=== PATIENT | male | born 1950 | race Caucasian/White ===

== ENCOUNTER 2018-06-18 09:13 | Outpatient (CLI) | payer MEDICARE ==
--- NOTE | 2018-06-18 11:33 | HP ---
DATE OF SERVICE: 06/18/2018. HISTORY OF PRESENT ILLNESS: Mr. Carlyle Flores is a very pleasant 68-year-old gentleman who [facility] of a lesion of the left buttock. The patient states that the lesio n might be aggravated by his prosthesis. He states that the lesion becomes better and worse, but nev er healed completely. The patient states that at times the lesion is open and erythematous. He stat es that his dresses the lesion with Neosporin followed by a Band-Aid. The patient states that seth hutchins was recently seen by Dr. Houston and prescribed courses of Augmentin and Bactrim, which he complete d taking as prescribed. He states that at this time, he was also referred to the [facility] for fu rther evaluation and treatment. PAST MEDICAL HISTORY: 1. Diabetes mellitus. 2. Hypertension. 3. Peripheral vascular disease. 4. Coronary artery disease. 5. Hypothyroidism. 6. History of atrial fibrillation. 7. Heart failure with preserved ejection fraction. PAST SURGICAL HISTORY: 1. Left above the knee amputation. 2. Colonic fistula repair. 3. Bilateral Warthin's tumor removal. MEDICATIONS: The patient does not have a list of his medications with him today. His medications; h owever, include levothyroxine, Lantus, Humalog, metformin, losartan, isosorbide, Plavix, Eliquis, Spi joseph and another inhaler. ALLERGIES: No known diagnosed allergies. SOCIAL HISTORY: Social history is significant for tobacco use of 2 packs of cigarettes per day since his teenage years. The patient states that he stopped smoking; however, around the year 1999. Soci al history is negative for ETOH use. FAMILY HISTORY: Family history is significant for coronary artery disease. The patient states that his mother was diagnosed with coronary artery disease. Family history is also significant for diabet es mellitus. The patient states that he has one sister and three brothers who were diagnosed with di abetes mellitus. PHYSICAL EXAMINATION: VITAL SIGNS: Temperature 97.5, pulse 61, respirations 23, blood pressure 166/72. Accu-Chek 171. GENERAL: A 68-year-old gentleman sitting on table in examination room, in no acute distress. HEENT: Normocephalic, atraumatic. NECK: No nuchal rigidity. CHEST: Clear to auscultation. CARDIOVASCULAR: Regular rate and rhythm. ABDOMEN: Soft. EXTREMITIES: A dorsalis pedis pulse is palpable on the right. A posterior tibial pulse is not palpa ble, but is audible by Doppler. No ulcerations are present over the right foot on today's exam. BACK: A lesion of the left buttock is present, which measures approximately 0.5 x 0.5 cm. The lesio n is erythematous and macular without any associated drainage. No erythema of the skin surrounding t he lesion is present. No maceration of the skin of the left buttock is present. NEUROLOGIC: Grossly nonfocal. ASSESSMENT AND PLAN: Left buttock lesion as described above. The patient has been reassured that no open wound is present. The patient states that his prosthesis has been adjusted by his securities dealer in order to provide for offloading of the left buttock in the region of the lesion. I have recommend ed dressing the lesion with Silvercel and bordered gauze to prevent any irritation of the skin by the prosthesis in the region of the lesion. The patient understands and is in agreement with the preced ing treatment plan. The patient states he will return to the [facility] if the lesion recurs despi te the preceding regimen. No open wound is present on today's exam and therefore no antibiotics will be prescribed today. The patient states that the lesion improved with the administration of Augment in and Bactrim DS. 2. Diabetes mellitus. The patient's Accu-Chek in clinic today is 171. 3. Hypertension. The patient has been told that with diabetes, his blood pressures should remain le ss than 140/90 or even more optimally less than 130/80. 4. Peripheral vascular disease. 5. Coronary artery disease. 6. Hypothyroidism. 7. History of atrial fibrillation. 8. Heart failure with preserved ejection fraction.
== END 2018-06-18 09:14 | disposition home or self-care (01) ==
LOC: WCC 09:13
PROVIDERS: ATTEND Family Medicine
DX: L98.9 Disorder of the skin and subcutaneous tissue, unspecified (principal); E11.51 Type 2 diabetes mellitus with diabetic peripheral angiopathy without gangrene; I25.10 Atherosclerotic heart disease of native coronary artery without angina pectoris; E03.9 Hypothyroidism, unspecified; I48.91 Unspecified atrial fibrillation; I11.0 Hypertensive heart disease with heart failure; I50.9 Heart failure, unspecified
CPT/HCPCS: 97139; 97602; G0463; 99203

== ENCOUNTER 2018-07-18 08:08 | Outpatient (CLI) | payer MEDICARE ==
[2018-07-18 08:48] LABS: Estimated GFR-MDRD - POC Greater than 90
--- NOTE | 2018-07-18 10:29 | CT ---
CT ANGIOGRAM ABDOMEN AND PELVIS WITH IV CONTRAST AND 3D RECONSTRUCTIONS CT ANGIOGRAM BILATERAL LOWER EXTREMITIES WITH RUOFF TO THE LEVEL OF THE RIGHT FOOT WITH IV CONTRAST A ND 3D RECONSTRUCTIONS: Date: 07-18-18 FINDINGS: There are minimal ground glass densities at each lung base which could be related to volume loss. No pleural effusion is present. There is a small hiatal hernia. A 1.7 cm right adrenal nodule is present which cannot be adequately characterized on this post enhanc ed CT scan exam. There is a 5.1 cm fluid attenuation density seen within the left kidney with question of a very tiny thin linear septation cyst involving a type two renal cystic lesion. The liver, spleen, pancreas, left adrenal gland, right kidney and incompletely distended urinary blad dilcia demonstrate a normal CT appearance for arterial phase of imaging. There is a left inguinal hernia which does contain a portion of the sigmoid colon, but there is no ev idence of a bowel obstruction. There is a moderate amount of retain fecal material seen throughout th e colon. The appendix is visualized and normal in caliber. Atherosclerotic vascular calcifications are seen in the abdominal aorta and involving the iliac arter ies. There is occlusion of the proximal left common iliac artery. There is occlusion of the origin and proximal celiac artery as well as prominent atherosclerotic irre gularity involving the proximal SMA with focal short segment occlusion of the SMA. The QUEENIE is patent with a dilated and prominent arc of riolan which reconstitutes the proximal superior mesenteric arter y. There is also reconstitution of the celiac artery via the pancreatic or duodenal arcade. There is prominent atherosclerotic vascular calcifications involving the common iliac artery with mil d degrees of narrowing. Some are seen involving the right external iliac artery. There is irregular aneurysmal dilatation and irregularity involving the distal right external iliac a rtery as well as the right common carotid artery. There are post-surgical changes in this region, but the aneurysm dilatation of the right common iliac artery is irregular in appearance with mural throm bus present. Greatest transverse dimension is approximately 3.6 cm. There are single patent bilateral renal arteries. Degenerative changes seen in the spine. BILATERAL LOWER EXTREMITY RUNOFF: Left lower extremity: There is above the knee amputation at the level of the mid diaphyses of the fem ur. As noted above, there is occlusion of the left common iliac artery with reconstitution of a small caliber profunda femoral artery on the left. There are femoral artery bypass grafts on the left whic h are also occluded. Right lower extremity: The right lower extremity profunda femoral artery is occluded proximally with reconstitution of branches of the profunda femoral artery. There is atherosclerotic calcification and irregularity involving the right superficial femoral arter y with only mild degrees of narrowing present throughout the course of the right superficial femoral artery. Right lower extremity popliteal artery is patent. Trifurcation arteries are patent. The right anterior tibial artery occludes at the level of the dista l calf. There is reconstitution of the dorsalis pedis artery via the peroneal artery which is the sin gle vessel runoff to the right lower extremity. The posterior tibial artery occludes just above the l evel of the ankle. IMPRESSION: 1. 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 There is reconstitut ion of both the celiac and superior mesenteric artery via collateral pathways. The arc of riolan is d ilated and prominent. The QUEENIE is patent. 2. Occlusion of the left iliac arteries. There is reconstitution of branches of the left profunda fem oral artery. 3. Prominent atherosclerotic irregularity and multifocal areas of dilatation involving the distal rig ht external iliac as well as common femoral arteries with post-surgical change in the right inguinal region. The greatest transverse dimension is approximately 3.6 cm. 4. Occlusion of the origin of the most proximal profunda femoral artery with reconstitution. 5. Mild atherosclerotic irregularity without significant stenosis involving the right lower extremity superficial femoral or popliteal arteries. 6. Single vessel runoff to the right lower extremity via the peroneal artery. The anterior tibial art radha and posterior tibial arteries occlude distally. Posterior tibial artery is not seen at the level of the ankle. There is reconstitution of the dorsalis pedis artery. 7. Small hiatal hernia. 8. Bosniak type II renal cyst. 9. Right adrenal nodule. Further evaluation with noncontrast CT abdomen is recommended. 10. Constipation. 11. Left inguinal hernia which contains a loop of colon, but there is no colonic obstruction present. POS: [facility]
[2018-07-18] MEDS ORDERED: Iopamidol 370 76% 100 ML VIAL ONE (13:26)
== END 2018-07-18 08:09 | disposition home or self-care (01) ==
LOC: CT 08:08
PROVIDERS: ATTEND Thoracic Surgery (Cardiothoracic Vascular Surgery)
DX: I70.213 Atherosclerosis of native arteries of extremities with intermittent claudication, bilateral legs (principal); I74.5 Embolism and thrombosis of iliac artery; I70.8 Atherosclerosis of other arteries; K44.9 Diaphragmatic hernia without obstruction or gangrene; N28.1 Cyst of kidney, acquired; E27.8 Other specified disorders of adrenal gland; K59.00 Constipation, unspecified; K40.90 Unilateral inguinal hernia, without obstruction or gangrene, not specified as recurrent
CPT/HCPCS: 75635; 82565

== ENCOUNTER 2018-10-30 10:18 | Outpatient (CLI) | payer MEDICARE ==
[2018-10-30] MEDS ORDERED: Iopamidol 370 76% 100 ML VIAL ONE (11:23)
--- NOTE | 2018-10-30 14:18 | CT ---
CT ARTERIOGRAM ABDOMEN AND PELVIS WITH IV CONTRAST AND 3D MIP IMAGING: CT ARTERIOGRAM BILATERAL LOWER EXTREMITY RUNOFF WITH IV CONTRAST AND 3D MIP IMAGING: HISTORY: Claudication. Vascular disease. COMPARISON: 07/18/2018 FINDINGS: Mild atelectasis is again demonstrated at the lung bases. Right adrenal adenoma appears stable. Cys ts of the left kidney are unchanged in appearance. Small hiatal hernia. Degenerative changes of the lumbar spine. Left inguinal hernia containing nonobstructed colon is stable. Occlusion of the celiac trunk and high-grade stenosis at the origin and proximal portion of the super ior mesenteric artery is similar in appearance to the prior study. An enlarged inferior mesenteric a rtery and arc of Riolan is again demonstrated with reconstitution of the upper visceral arterial stru ctures. No bowel ischemic symptoms are apparent. Renal arteries are patent with early bifurcation of the right renal artery. There is prominent calci fication within the aorta and iliac arteries. Occlusion of the left common iliac and iliac arteries. Faint collateral flow to the left thigh with amputation above the knee again demonstrated. On the right, prominent arterial calcification with mild to moderate stenosis of the common iliac art radha. External and internal iliac arteries are patent. The left common femoral artery is markedly ab normal, with hemostasis clips superficially and around the multifocal aneurysmal and pseudoaneurysmal dilatation of the artery. Just above the level of the hip joint, a focal area of aneurysmal dilatat ion measures up to 2 cm in greatest oblique diameter. At the level of the femoral head, a large pseu do aneurysm, projecting anteriorly and medially, is partially thrombosed. The overall diameter measu res up to 2.8 cm. The nonthrombosed portion measures up to 1.1 cm. Immediately inferior to this is a 2.2 cm pseudoaneurysm, projecting anteriorly. At this same level, a 1.1 cm aneurysm projects poste rolaterally. At the level of the femoral neck, the common femoral artery is dilated up to 1.4 cm. A normal origin of the right deep femoral artery is not well opacified. There is some collateralizat ion of flow to the branches of the deep femoral artery. Plaque and calcification along the course of the femoral artery result in multifocal mild stenosis. At the level of the mid thigh, this stenosis is approximately 70%. There is good flow into the popliteal artery with multifocal mild stenosis. Three-vessel runoff to the lower leg is apparent. IMPRESSION: 1. Severe vascular disease, as detailed above. Occlusion of the celiac trunk and high-grade stenosi s of the superior mesenteric artery with collateralization from the inferior mesenteric artery is sim ilar in appearance to the prior study. No evidence of complication of the bowel. 2. 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 3. Multifocal mild to moderate stenosis of the right femoral and popliteal arteries. 4. 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 5. Left adrenal adenoma, left inguinal hernia, and other chronic type findings appear stable. POS: [facility]
== END 2018-10-30 10:19 | disposition home or self-care (01) ==
LOC: CT 10:18
PROVIDERS: ATTEND Thoracic Surgery (Cardiothoracic Vascular Surgery)
DX: I70.213 Atherosclerosis of native arteries of extremities with intermittent claudication, bilateral legs (principal); I72.4 Aneurysm of artery of lower extremity; I74.5 Embolism and thrombosis of iliac artery; D35.02 Benign neoplasm of left adrenal gland; K40.90 Unilateral inguinal hernia, without obstruction or gangrene, not specified as recurrent
CPT/HCPCS: 75635; 82565

== ENCOUNTER 2019-03-16 23:02 | Inpatient (IN) | payer MEDICARE ==
--- NOTE | 2019-03-16 23:44 | RAD ---
EXAM: CHEST ONE VIEW HISTORY: Chest pain COMPARISON: 03/30/2017 FINDINGS: Cardiac silhouette is magnified by projection. The pulmonary vasculature is within normal limits. The re is minimal linear and patchy density at the right lung base probably related to superimposition of structures and atelectasis. The osseous structures are intact. Pacing pads overlie the chest. IMPRESSION: Linear and patchy density right lung base probably related to superimposition of structures and atele ctasis. Developing area of pneumonitis cannot be excluded. Follow-up chest x-ray is recommended.
[2019-03-16] MEDS ORDERED: methylPREDNISolone Sod Succ/PF 125 MG/2 ML VIAL ONE (23:46)
[2019-03-16] MEDS ORDERED: diphenhydrAMINE 50 MG/ML VIAL ONE (23:46)
[2019-03-17 00:02] LABS: #Basophils 0.1 thou/uL (0.0-0.2); #Eosinphils 0.3 thou/uL (0.0-0.7); #Lymphocytes 3.2 thou/uL (1.20-3.40); #Neutrophils 5.9 thou/uL (1.40-6.50); %Basophils 1.2 % (0.0-1.0); %Eosinophils 2.9 % (0.0-10.0); %Lymphocytes 30.6 % (21.0-51.0); %Monocytes 9.7 % (0.0-10.0); %Neutrophils 55.6 % (42.0-75.0); Hemoglobin 9.2 g/dL (14.0-18.0); Hypochromia MODERATE=16-30 cells (100X) (0-5/hpf); MDiff Complete? YES; Mean Corpuscular HGB CONC 27.9 g/dL (32.0-36.0); Mean Corpuscular Hemoglobin 16.5 pg (27.0-31.0); Mean Corpuscular Volume 59.1 fL (78.0-98.0); Microcytosis MODERATE=15-30 cells (100X) (0-5/hpf); Ovalocytes SLIGHT = 2-5 cells (100X) (0-1/hpf); Platelet Count 328 thou/uL (130-400); Platelet Morphology Comment Appears Adequate; RBC Distribution Width 19.8 % (11.5-14.5); Reflex for Review?? YES; Target Cells SLIGHT = 2-5 cells (100X) (0-1/hpf); White Blood Cell (WBC) Count 10.5 thou/uL (4.8-10.8)
[2019-03-17 00:04] LABS: ALT (SGPT) 11 U/L (8-55); AST (SGOT) 22 U/L (5-34); Alkaline Phosphatase 75 U/L (40-150); Anion Gap 20 mmol/L (10-20); BUN (Urea Nitrogen) 18 mg/dL (8.4-25.7); Bilirubin, Total 0.4 mg/dL (0.2-1.2); CK (CPK) 155 U/L (30-200); Calc. Creatinine Clearance 0 mL/min (70-130); Calcium 9.7 mg/dL (7.8-10.44); Carbon Dioxide 20 mmol/L (23-31); Chloride 101 mmol/L (98-107); Estimated GFR-MDRD 68; Globulin 2.6 g/dL (2.4-3.5); Glucose 134 mg/dL (80-115); Lipase 10 U/L (8-78); Potassium 4.1 mmol/L (3.5-5.1); Protein, Total 7.6 g/dL (5.8-8.1); Sodium 137 mmol/L (136-145)
[2019-03-17] MEDS ORDERED: Ondansetron PF 4 MG/2 ML Vial ONE (00:13)
[2019-03-17] MEDS ORDERED: Midazolam HCl 2 mg/2 ml Vial ONE (00:14)
[2019-03-17] MEDS ORDERED: Fentanyl 100 MCG/2 ML VIAL ONE (00:15)
[2019-03-17] MEDS ORDERED: Nitroglycerin 0.4 MG TAB (25 Tab Bottle) SL PRN (00:25)
[2019-03-17] MEDS ORDERED: Acetaminophen/Codeine 30-300mg Tablet PO PRN (00:25)
[2019-03-17] MEDS ORDERED: Sodium Chloride 0.9% 200 ML IV PRN (00:25)
[2019-03-17 00:26] LABS: CKMB 4.3 ng/mL (0-6.6)
[2019-03-17] MEDS ORDERED: Sodium Chloride 0.9% 1,000 ML IV SCH (00:30)
--- NOTE | 2019-03-17 00:39 | CON ---
DATE OF CONSULTATION: REASON FOR CONSULTATION: Chest pain. HISTORY OF PRESENT ILLNESS: Mr. Flores is a pleasant gentleman, who is a patient of Dr. Armando Juarez, who recently presented with chest pain. His chest pain started at 10:00 p.m. It happened after eating. He had associated nausea, vomiting. This was along his upper chest. He had left arm radiation. No other ameliorating, exacerbating, or precipitating factors present. Mr. Flores does have a previous history of CAD, status post stent placement to the LAD. He has a chronically occluded right coronary artery. ST-segment elevation was noted on his initial EKG, although unchanged from February. The patient continues to have pain. PAST MEDICAL HISTORY: Non-Q-wave OR, status post stent placement with hypothyroidism, hypertension, PVD, left AKA, paroxysmal atrial fibrillation, on anticoagulation therapy. ALLERGIES: IODINE. CURRENT HOME MEDICATIONS: Include; 1. Plavix. 2. Crestor. 3. Eliquis. 4. Humalog. 5. Lantus. 6. Levothyroxine. 7. Diovan. SOCIAL HISTORY: No current tobacco or alcohol use. REVIEW OF SYSTEMS: A 10-point review of systems is reviewed as above, otherwise negative. PHYSICAL EXAMINATION: GENERAL: The patient is a pleasant 69-year-old who is in no acute distress. The patient appears their stated age. VITAL SIGNS: Blood pressure 110/70, pulse respirations 20. NEUROLOGIC: The patient is alert and oriented x3 with no focal neurologic deficits. HEENT: Sclerae without icterus. Mouth has moist mucous membranes with normal pallor. NECK: No JVD. Carotid upstroke brisk. No bruits bilaterally. LUNGS: Clear to auscultation with unlabored respirations. BACK: No scoliosis or kyphosis. CARDIAC: Regular rate and rhythm with normal S1 and S2. No S3 or S4 noted. No significant rubs, murmurs, thrills, or gallops noted throughout the precordium. PMI is not displaced. There is no parasternal heave. ABDOMEN: Soft, nontender, nondistended. No peritoneal signs present. No hepatosplenomegaly. No abnormal striae. EXTREMITIES: 2+ femoral and 2+ dorsalis pedis pulses. No cyanosis, clubbing, or edema. SKIN: No gross abnormalities. PERTINENT LABORATORY DATA: Pending. IMAGING: EKG as above. IMPRESSION: 1. Acute onset chest pain. 2. EKG changes. 3. Coronary artery disease. 4. Status post stent placement. 5. Peripheral vascular disease. RECOMMENDATIONS: Mr. Flores does have continued pain. He does have ST-segment elevation, but had ST elevation noted on a previous EKG with a chronically occluded right coronary artery. Given these, he continues to have pain with previous stent placed to LAD. We would recommend urgent coronary angiography and possible PCI. Does have a dye allergy and was being given Solu-Medrol and Benadryl. 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 We would proceed with a radial approach. I discussed the procedure in full detail with Mr. Flores. Risks included, but are not limited to the following: , stroke, OR, need for emergency surgery, loss of limb, bleeding, and infection, as well as a reaction to the dye causing kidney failure and needing long-term dialysis. I also discussed the risks of PCI to include all of the above including coronary dissection and perforation in addition to acute stent thrombosis and restenosis. All questions about the procedure were answered. Given the above, the patient agreed to proceed with coronary angiography and possible PCI. Job ID: [id number]
[2019-03-17 01:01] VITALS: BMI 28.5
[2019-03-17] MEDS ORDERED: Aspirin Chewable 81 MG TAB ONE (03:31)
[2019-03-17] MEDS ORDERED: Heparin 10,000 UNITS/ 10 ML VIAL ONE (03:33)
[2019-03-17] MEDS: Acetaminophen/Codeine 30-300mg Tablet PO PRN ×2 (05:49→22:45)
[2019-03-17 09:45] LABS: CKMB 74.4 ng/mL (0-6.6); Troponin I 7.887 ng/mL (< 0.028)
--- NOTE | 2019-03-17 13:00 | PDOC.CTH ---
Cardiology Progress Note - Subjective No more chest pain. None since yesterday in the ER. When his symptoms started he had nausea, vomiting, this was after a meal. He checked his BP at that time and it was 237/100. His HR on arrival to the ER was 147 and ECG suggests afib RVR. He has also noted wanting to eat ice chips all the time for the last 2 weeks. No melena, hematochezia, hematemesis. - Objective Vital Signs Temp Pulse Resp BP Pulse Ox 03/17/19 12:14 98 F 82 18 159/71 H 95 03/17/19 07:34 98.2 F 64 18 127/61 94 L 03/17/19 04:00 98.5 F 66 20 131/63 94 L Weight 199 lb 3.2 oz - Physical Examination General/Neuro: alert & oriented x3, NAD Neck: no JVD present Lungs: CTA, unlabored respirations Heart: RRR Abdomen: NT/ND Extremities: + edema B (none) - Telemetry Telemetry Rhythm: NSR - Labs Result Diagrams: 03/16/19 23:26 03/16/19 23:26 Troponin/CKMB CK-MB (CK-2) 74.4 ng/mL (0-6.6) H* 03/17/19 08:53 Troponin I 7.887 ng/mL (< 0.028) H* 03/17/19 08:53 - Assessment/Plan 1. Type 2 PR, demand ischemia. 2. Afib RVR, paroxysmal, back in sinus. 3. Hypertensive emergency. 4. Nausea/vomiting, 5. Anemia, new onset. 6. PVD 7. Type 2 DM. PLAN: - Echo to be done. - Restart home meds. - Will continue to trend troponins. - LIkely trpoponin elevation due to high BP and afb RVR. - Need to rule out myopericarditis, will do echo. - Possibly from food poisoning. - Will consider GI evaluation for anemia. Pt on Plavix and Eliquis.
[2019-03-17] MEDS: PROVENTIL INHALER 6.7 G (200 INHALATIONS) INH SCH ×2 (14:33→19:39)
[2019-03-17] MEDS: metFORMIN 500 MG TAB PO SCH (14:37)
[2019-03-17] MEDS ORDERED: Iopamidol 370 76% 100 ML VIAL ONE (14:41)
[2019-03-17] MEDS: HumaLOG 300 UNITS/3 ML VIAL SC SCH (16:18)
[2019-03-17 17:57] LABS: Critical Call Chem Troponin I RESULT DECREASING
[2019-03-17 18:21] LABS: Critical Call CKMB RESULT DECREASING
[2019-03-17] MEDS: Docusate 100 MG CAP PO SCH (20:49)
[2019-03-17] MEDS: Rosuvastatin 20 MG TAB PO SCH (20:49)
[2019-03-17] MEDS: Carvedilol 3.125 MG TAB PO SCH (20:49)
[2019-03-17] MEDS ORDERED: Apixaban 5 MG TAB PO SCH (21:00)
[2019-03-17] MEDS: Insulin Regular 300 UNITS/3 ML VIAL SC PRN (22:41)
[2019-03-18 05:51] LABS: Anion Gap 15 mmol/L (10-20); BUN (Urea Nitrogen) 21 mg/dL (8.4-25.7); Calc. Creatinine Clearance 108 mL/min (70-130); Calcium 8.9 mg/dL (7.8-10.44); Carbon Dioxide 22 mmol/L (23-31); Chloride 102 mmol/L (98-107); Estimated GFR-MDRD 90; Glucose 157 mg/dL (80-115); Potassium 3.5 mmol/L (3.5-5.1); Sodium 135 mmol/L (136-145)
[2019-03-18 06:01] LABS: Critical Call Chem Troponin I RESULT DECREASING
[2019-03-18] MEDS: Levothyroxine 150 MCG TAB PO SCH (06:07)
[2019-03-18 06:21] LABS: CKMB 23.8 ng/mL (0-6.6); Critical Call CKMB RESULT DECREASING
[2019-03-18 06:48] LABS: Hemoglobin 8.2 g/dL (14.0-18.0); Mean Corpuscular HGB CONC 28.6 g/dL (32.0-36.0); Mean Corpuscular Hemoglobin 16.6 pg (27.0-31.0); Mean Corpuscular Volume 58.1 fL (78.0-98.0); Mean Platelet Volume 5.9 fL (7.4-10.4); Platelet Count 305 thou/uL (130-400); RBC Distribution Width 19.8 % (11.5-14.5); Red Blood Cell (RBC) Count 4.92 mill/uL (4.70-6.10); White Blood Cell (WBC) Count 21.2 thou/uL (4.8-10.8)
[2019-03-18] MEDS: PROVENTIL INHALER 6.7 G (200 INHALATIONS) INH SCH ×3 (07:34→19:00)
[2019-03-18 07:55] LABS: Band 5 % (5-11); Elliptocytes SLIGHT = 2-5 cells (100X) (0-1/hpf); Hypersemented Neutrophil SLIGHT; Hypochromia MARKED = >30 cells (100X) (0-5/hpf); Lymphocytes 12 % (21-51); MDiff Complete? YES; Microcytosis MARKED = >30 cells (100X) (0-5/hpf); Monocytes 6 % (0-10); Neutrophil 77 % (42-75); Ovalocytes SLIGHT = 2-5 cells (100X) (0-1/hpf); Platelet Morphology Comment Appears Adequate; Polychromasia MODERATE = 3-4 cells (100X) (0-2/hpf)
[2019-03-18] MEDS: HumaLOG 300 UNITS/3 ML VIAL SC SCH ×3 (08:31→17:45)
[2019-03-18] MEDS: Chlorthalidone 25 MG TAB PO SCH (08:33)
[2019-03-18] MEDS: Carvedilol 3.125 MG TAB PO SCH ×2 (08:33→20:28)
[2019-03-18] MEDS: Losartan 25 MG TAB PO SCH (08:34)
[2019-03-18] MEDS: PRE FILLED SC SCH (08:38)
[2019-03-18] MEDS: INSULIN GLARGINE SC SCH (08:38)
[2019-03-18] MEDS ORDERED: Clopidogrel Bisulfate 75 MG TAB PO SCH (09:00)
[2019-03-18] MEDS ORDERED: Ipratropium Bromide 2.5 ml Neb NEB SCH (09:00)
[2019-03-18] MEDS ORDERED: INSULIN GLARGINE SQ SCH (09:00)
[2019-03-18] MEDS ORDERED: Non-Formulary Item 1 EACH (Empagliflozin [Jardiance] 25 MG) PO SCH (09:00)
[2019-03-18] MEDS ORDERED: [UNRECOGNIZED DRUG - OTHER] SQ SCH (09:00)
[2019-03-18 09:29] LABS: Iron 16 ug/dL (65-175); Iron Binding Capacity, Total 489 mcg/dL (261-462)
[2019-03-18] MEDS: Insulin Regular 300 UNITS/3 ML VIAL SC PRN (11:03)
[2019-03-18 12:26] LABS: Bilirubin Negative (Negative); Blood, Urine Negative (Negative); Clarity CLEAR (Clear); Glucose, Urine (Dipstick) >=1000 mg/dL (Negative); Leukocyte Negative (Negative); Nitrite Negative (Negative); Protein, Urine (Dipstick) Negative (Neg-Trace)
[2019-03-18 12:29] LABS: Bacteria/HPF None Seen HPF (None Seen); Hyaline Casts/LPF 0-3 HYALINE CAST LPF (0-3 Hyaline); RBC/HPF 0-3 HPF (0-3); Squamous Epithelial None Seen HPF (0-3); WBC/HPF None Seen HPF (0-3)
[2019-03-18 12:33] LABS: Urine Culture Reflex No No
--- NOTE | 2019-03-18 18:08 | PDOC.FPRHP ---
- History of Present Illness Chief Complaint: N/V History of Present Illness: 69YOM with a PMH significant for CAD s/p stent placement, IDDMII, PVD, and COPD who presented to the ED with a CC of chest pain that he states began the night of presentation on 03/16/19. Per the patient he has been feeling much more easily fatigued and having episodes of nausea on and off for the last several months. However, on the night of presentation he was feeling well and was sitting at home getting ready to watch the evening news when he suddenly became extremely nauseous and began vomiting. He states it was the worst vomiting that he has ever had. He continued to vomit and developed some associated central burning chest pain so he decided to go the ER for further evaluation. Per chart review, the patient's EKG on presentation was notable for ST elevation and his troponin was elevated at 6 so he was taken back for an urgent cath which was WNLs. On routine bloodwork the following morning it was noted that his Hgb was significantly lower than previously and his WBC was elevated. Therefore, FM was consulted to take over management as ACS had been ruled out as a cause of his chest pain and nausea. The patient denied any associated melena, hematochezia, abdominal pain or fever/chills. He also denied any recent sick contacts or diarrhea. He did report coughing up some blood-tinged/brown sputum earlier today and endorsed feeling more short of breath than normal. He reports having had 1 colonoscopy in his 50s that revealed hemorrhoids but no other pathology but no personal h/o PUD or colon polyps. ED Course: 5,000U heparin, 324 ASA, 125 solumedrol, 50mg benadryl - Allergies/Adverse Reactions Allergies Allergy/AdvReac Type Severity Reaction Status Date / Time iodine Allergy Severe from Verified 03/17/19 02:55 Seafood, makes him very sick, nausea/vomiting - Home Medications Medication Instructions Recorded Confirmed Type Docusate Sodium [Doc-Q-Lace] 100 mg PO HS 03/28/16 03/17/19 History Insulin Lispro [Humalog Kwikpen 12 unit SQ ASDIR 03/28/16 03/17/19 History U-100] metFORMIN HCl [Glucophage] 1,000 mg PO BID-WM 03/28/16 03/17/19 History Clopidogrel Bisulfate [Plavix] 75 mg PO DAILY #30 tab 03/13/17 03/17/19 Rx Rosuvastatin [Crestor] 40 mg PO HS #30 tab 03/13/17 03/17/19 Rx Apixaban [Eliquis] 5 mg PO BID #60 tab 03/24/17 03/17/19 Rx Albuterol Sulfate [Proair HFA] 8.5 gm INH TID 03/17/19 03/17/19 History Carvedilol [Coreg] 3.125 mg PO BID 03/17/19 03/17/19 History Chlorthalidone 25 mg PO DAILY 03/17/19 03/17/19 History Empagliflozin [Jardiance] 25 mg PO DAILY 03/17/19 03/17/19 History Insulin Glargine,Hum.Rec.Anlog 66 units SQ QAM 03/17/19 03/17/19 History [Toujeo Max Solostar] Isosorbide Mononitrate [Isosorbide 60 mg PO DAILY 03/17/19 03/17/19 History Mononitrate ER] Levothyroxine Sodium [Synthroid] 150 mcg PO 0600 03/17/19 03/17/19 History Losartan Potassium 100 mg PO DAILY 03/17/19 03/17/19 History Pantoprazole Sodium 40 mg PO DAILY 03/17/19 03/17/19 History Tiotropium [place] [Spiriva] 18 mcg DAILY 03/17/19 03/17/19 History - History PMHx: CAD s/p stent placement, PVD, HTN, HLD, IDDMII, hypothyroidism, paroxysmal atrial fibrillation on Eliquis, COPD not on home O2, anemia (per labs from 02/27/19) PSHx: L leg AKA, B/L Warthin's tumor removal, colon fissure repair, right femoral graft repair FHx: small cell lung cancer and colon cancer in 2 of his brothers Social: Former smoker with 60pack year history. Quit in 2001. No EtOH or drug use. Lives at home with . - Review of Systems General: reports: fatigue. denies: fever/chills, weight/appetite/sleep changes Eyes: denies: eye pain, vision changes ENT: reports: other (no sore throat). denies: nasal congestion Respiratory: reports: cough, shortness of breath Cardiovascular: denies: chest pain, palpitation Gastrointestinal: reports: nausea, vomiting. denies: diarrhea, constipation, abdominal pain, GI bleeding Genitourinary: reports: other (no hematuria). denies: dysuria Skin: denies: rashes, lesions Musculoskeletal: denies: pain, swelling, arthritis/arthralgias Neurological: denies: numbness, syncope, weakness Psychological: denies: anxiety, depression - Vital signs BP: 118/57 HR: 82 RR: 16 Tmax: 99.3F Pox: 94% on RA Wt: 90.356 kg - Physical Exam Constitutional: NAD, awake, alert and oriented, well developed HEENT: normocephalic and atraumatic, grossly normal vision, grossly normal hearing, MMM, oropharynx clear, other (conjunctival pallor noted) Neck: supple, FROM Heart: RRR, normal S1/S2, other (2/6 systolic flow murmur heard best at R sternal border) Lungs: no respiratory distress, good air movement, no rales/rhonchi, no wheezing , no retractions, other (crackles in B/L bases L>R) Abdomen: soft, non-tender, bowel sounds present, no masses/distention Musculoskeletal: ROM grossly normal, other (Left AKA) Neurological: no focal deficit, CN II-XII intact (grossly) Skin: no rash/lesions, good turgor, capillary refill <2 seconds, no jaundice Heme/Lymphatic: no unusual bruising or bleeding, no petechia, other (bruise on right upper arm) Psychiatric: normal mood and affect, good judgment and insight, intact recent and remote memory FMR H&P: Results - Labs Result Diagrams: 03/18/19 06:37 03/18/19 05:26 Lab results: WBC 21.2 thou/uL (4.8-10.8) H 03/18/19 06:37 Hgb 8.2 g/dL (14.0-18.0) L 03/18/19 06:37 Hct 28.6 % (42.0-52.0) L 03/18/19 06:37 MCV 58.1 fL (78.0-98.0) L 03/18/19 06:37 Plt Count 305 thou/uL (130-400) 03/18/19 06:37 Neutrophils % 55.6 % (42.0-75.0) 03/16/19 23:26 Band Neuts % (Manual) 5 % (5-11) 03/18/19 06:37 Sodium 135 mmol/L (136-145) L 03/18/19 05:26 Potassium 3.5 mmol/L (3.5-5.1) 03/18/19 05:26 Chloride 102 mmol/L (98-107) 03/18/19 05:26 Carbon Dioxide 22 mmol/L (23-31) L 03/18/19 05:26 BUN 21 mg/dL (8.4-25.7) 03/18/19 05:26 Creatinine 0.85 mg/dL (0.7-1.3) 03/18/19 05:26 Glucose 157 mg/dL (80-115) H 03/18/19 05:26 Calcium 8.9 mg/dL (7.8-10.44) 03/18/19 05:26 Total Bilirubin 0.4 mg/dL (0.2-1.2) 03/16/19 23:26 AST 22 U/L (5-34) 03/16/19 23:26 ALT 11 U/L (8-55) 03/16/19 23:26 Alkaline Phosphatase 75 U/L (40-150) 03/16/19 23:26 Creatine Kinase 155 U/L (30-200) 03/16/19 23:26 CK-MB (CK-2) 23.8 ng/mL (0-6.6) H* 03/18/19 05:26 Serum Total Protein 7.6 g/dL (5.8-8.1) 03/16/19 23:26 Albumin 5.0 g/dL (3.4-4.8) H 03/16/19 23:26 Lipase 10 U/L (8-78) 03/16/19 23:26 Urine Ketones Negative mg/dL (Negative) 03/18/19 11:10 Urine Blood Negative (Negative) 03/18/19 11:10 Urine Nitrite Negative (Negative) 03/18/19 11:10 Ur Leukocyte Esterase Negative (Negative) 03/18/19 11:10 Urine RBC 0-3 HPF (0-3) 03/18/19 11:10 Urine WBC None Seen HPF (0-3) 03/18/19 11:10 Ur Squamous Epith Cells None Seen HPF (0-3) 03/18/19 11:10 Urine Bacteria None Seen HPF (None Seen) 03/18/19 11:10 - Radiology Interpretation Chest x-ray Status: image reviewed by me, report reviewed by me (linear patchy density in R lung base related to superimposition of structures & atelectasis but pneumonitis cannot be excluded) FMR H&P: A/P - Problem List (1) Microcytic anemia Current Visit: Yes Status: Acute Code(s): D50.9 - IRON DEFICIENCY ANEMIA, UNSPECIFIED (2) COPD (chronic obstructive pulmonary disease) Current Visit: Yes Status: Acute (3) CAD (coronary artery disease) Current Visit: No Status: Acute Code(s): I25.10 - ATHSCL HEART DISEASE OF [place] CORONARY ARTERY W/O ANG PCTRS Qualifiers: Coronary Disease-Associated Artery/Lesion type: [place] artery [place] vs. transplanted heart: [place] heart Associated angina: without angina Qualified Code(s): I25.10 - Atherosclerotic heart disease of [place] coronary artery without angina pectoris (4) Paroxysmal atrial fibrillation Current Visit: No Status: Acute Code(s): I48.0 - PAROXYSMAL ATRIAL FIBRILLATION (5) Diabetes mellitus Current Visit: No Status: Chronic Code(s): E11.9 - TYPE 2 DIABETES MELLITUS WITHOUT COMPLICATIONS Qualifiers: Diabetes mellitus type: type 2 (6) Hypertension Current Visit: No Status: Chronic Code(s): I10 - ESSENTIAL (PRIMARY) HYPERTENSION (7) Hypothyroidism Current Visit: No Status: Chronic Code(s): E03.9 - HYPOTHYROIDISM, UNSPECIFIED (8) Peripheral vascular disease Current Visit: No Status: Chronic Code(s): I73.9 - PERIPHERAL VASCULAR DISEASE, UNSPECIFIED (9) Neutrophilic leukocytosis Current Visit: Yes Status: Acute Code(s): D72.9 - DISORDER OF WHITE BLOOD CELLS, UNSPECIFIED - Plan 69YOM with a PMH significant for CAD s/p stent placement, paroxysmal a fib on eliquis, IDDMII, COPD, and PVD s/p L AKA who was admitted for chest pain with nausea & vomiting and found to have profound iron deficiency anemia and leukocytosis. iron deficiency anemia - Hgb down to 8.2 today & iron studies support diagnosis of DANIEL. Patient has multiple risk factors for colon malignancy including a smoking history and FH of colon CA so this much be ruled out as a potential source of his anemia. Has had a colonoscopy but was 10 years or more ago. - Dr. Haywood with GI was consulted by cards prior to us assuming care and plans to have the patient complete prep overnight with plans for an EGD/colonoscopy tomorrow. - Eliquis has been help for today and will continue to hold pending recs from cards & GI. Leukocytosis 2/2 presumed CAP - WBC increased from 10 on admission to 20 today. Patient has not fevered but does reports increased SOB and noted rust-colored sputum today. CXR on admission could not rule out possible pneumonitis of RLL. Blood cultures already pending. Will also check a procal & sputum cultures & get a repeat CXR per recs from initial x-ray. - Will continue to monitor vitals closely & start empiric abx with IV rocephin & azithromycin given h/o DM. - Will continue PRN oxygen to maintain sats >90% & continue RAUL atrovent and albuterol & add mucinex to encourage sputum clearance. elevated troponin - Patient s/p cath this admission which was unchanged from previous exams requiring no new intervention. Therefore deemed to most likely be 2/2 demand ischemia in setting of anemia and/or acute infection. Cardiology also on board, appreciate recs. IDDMII - Will resume home meds & hold metformin until 48 hours post-cath. Will continue ACHS accuchecks and hypoglycemia protocol. CAD s/p stent placement - Will resume home meds. paroxysmal atrial fibrillation - Hold eliquis for now in setting of anemia but will resume pending GI & cards recs following scopes tomorrow. Will resume other home meds. COPD - Will continue home meds & O2 support to maintain sats >90%. Will wean O2 as tolerated by patient. hypothyroidism - Per chart review recent TSH suggestive of mild overtreatment with TSH of 0.2. Will continue home meds for now & have patient follow-up with PCP as outpatient for dosage adjustment PRN. HTN - Will resume home meds. HLD - Will continue home meds. PVD - Will continue home meds. FMR H&P: Upper Level - Pertinent history 69M initially admitted for chest pain with ST segment elevations. He was taken urgently for catheterization, which revealed no new blockages and required no PCI. Patient with no active chest pain at this time. Upon further evaluation, it was found that his hemoglobin was low at 8.2. He denies any hematochezia or melena. Last c-scope was roughly 10 years ago and was normal except for hemorrhoids. He had a brother with colon cancer that was diagnosed in his 50's. Iron studies show a profound iron deficiency. He endorses worsening cough with increased sputum production of rust colored variety since being admitted. He denies any fever/chills. - Pertinent findings H/H: 8.2/28.6 WBC: 21.2 marked hypochromia and microcytosis on smear iron: 16 TIBC: 489 Ferritin: 7.72 Trop: 6.84 Procal: .07 UA shows glucosuria but otherwise normal - Plan Date/Time: 03/18/19 1632 I, Álvaro Kenney, have evaluated this patient and agree with findings/plan as outlined by marketing research intern resident. Pertinent changes/additions are listed here. Iron Deficiency Anemia: patient denies any overt source of bleeding. Labs and smear consistent with Fe def. GI has been consulted and patient to undergo upper and lower endoscopy starting tomorrow. Eliquis for pAfib has been held. Discussed at length indications for transfusion. If CP recurs or Hg below 7, will proceed with transfusion. Suspected CAP: worsening cough and sputum production with leukocytosis warrants antibiotic coverage with rocephin and azithromycin. procal pending. Addendum - Attending - Attending Attestation Date/Time: 03/18/19 2568 I personally evaluated the patient and discussed the management with Drs. Villegas /Pablito I agree with the History, Examination, Assessment and Plan documented above with any addition or exceptions noted below. 59 yo admitted with CP suspicious for STEMI and elevated troponin s/p heart cath with no changes s/p prior stent LAD.DX with type 2 VT Problems; new microcytic anemia he denies GI blood loss appropriate GI evaluation planned DOAC on hold and undergoing bowel prep, hemodynamically stable transfuse prn symptoms or hgb <7 DM2 on oral agents plus basal insulin rec hold metformin s/p contrast x 48 hour productive cough brownish sputum, leukocytosis denies fever, chills with infiltrate noted on CXR will treat CAP do not suspect aspiration HX PVD s/p R AKA needs refitting prosthesis with weight loss associated with left femoral artery procedure Ewing HX tobacco use and secondary COPD Hypothyroidism on replacement TSH relatively low avoid overtreament Hx atrial fibrillation s/p ablation on eliquis curently on hold for GI work up
[2019-03-18] MEDS ORDERED: GoLYTELY 4,000 ml Bottle PO SCH (19:00)
[2019-03-18] MEDS ORDERED: Dextrose 5% in Water 1,000 ML IV PRN (19:27)
[2019-03-18] MEDS ORDERED: Dextrose 50% Abboject 50 ML SYRINGE SLOW IVP PRN (19:27)
[2019-03-18] MEDS ORDERED: Ondansetron PF 4 MG/2 ML Vial IVP PRN (19:33)
--- NOTE | 2019-03-18 20:12 | PDOC.CTH ---
Cardiology Progress Note - Subjective No chest pain. No Hematemesis, hematochezia, melena. - Objective Vital Signs Temp Pulse Resp BP Pulse Ox 03/18/19 14:12 74 18 94 L 03/18/19 08:29 19 95 03/18/19 08:23 98.3 F 80 21 H 132/64 89 L Admit Weight 199 lb 3.2 oz Weight 199 lb 3.2 oz 03/17/19 03/18/19 03/19/19 06:59 06:59 06:59 Intake Total 1560 Output Total 2029 Balance -470 - Physical Examination General/Neuro: alert & oriented x3, NAD Neck: no JVD present Lungs: CTA, unlabored respirations Heart: RRR Abdomen: NT/ND Extremities: other: (no edema) - Telemetry Telemetry Rhythm: NSR - Labs Result Diagrams: 03/18/19 06:37 03/18/19 05:26 Troponin/CKMB CK-MB (CK-2) 23.8 ng/mL (0-6.6) H* 03/18/19 05:26 Troponin I 6.684 ng/mL (< 0.028) H* 03/18/19 05:26 - Assessment/Plan 1. Type 2 MD, demand ischemia. 2. Afib RVR, paroxysmal, back in sinus. 3. Hypertensive emergency. 4. Nausea/vomiting, 5. Anemia, iron deficiency. 6. PVD 7. Type 2 DM. PLAN: - Restart home meds but will hold Eliquis and Plavix. - Likely troponin elevation due to high BP and afb RVR. - Echo pending. - GI evaluation for iron deficiency anemia. Pt on Plavix and Eliquis.
[2019-03-18] MEDS: Rosuvastatin 20 MG TAB PO SCH (20:28)
[2019-03-18] MEDS: Docusate 100 MG CAP PO SCH ×2 (20:29→20:30)
[2019-03-18] MEDS ORDERED: Azithromycin 500 MG in Sodium Chloride 0.9% 250 ML 250 ML IVPB SCH (20:30)
[2019-03-18] MEDS ORDERED: cefTRIAXone\\ROCEPHIN 1 GM in Sodium Chloride 0.9% 100 ML IVPB SCH (20:30)
--- NOTE | 2019-03-18 21:17 | RAD ---
EXAM: Two views chest PROVIDED CLINICAL HISTORY: Blood-tinged sputum COMPARISON: 03/16/2019 FINDINGS: Cardiac silhouette is at the upper limits of normal in size. The pulmonary vasculature is within norm al limits. There is minimal linear atelectasis versus scarring at the lateral right lung base. No consolidation or pleural fluid is appreciated. The osseous structures have a normal appearance. Quest ioned patchy density at the medial right lung base on prior study is not seen on this exam. IMPRESSION: No acute cardiopulmonary process.
[2019-03-19] MEDS: Levothyroxine 150 MCG TAB PO SCH (04:40)
[2019-03-19 05:23] LABS: #Basophils 0.1 thou/uL (0.0-0.2); #Eosinphils 0.2 thou/uL (0.0-0.7); #Lymphocytes 2.3 thou/uL (1.20-3.40); #Neutrophils 7.1 thou/uL (1.40-6.50); %Basophils 0.5 % (0.0-1.0); %Eosinophils 2.3 % (0.0-10.0); %Lymphocytes 21.2 % (21.0-51.0); %Monocytes 9.5 % (0.0-10.0); %Neutrophils 66.6 % (42.0-75.0); Hemoglobin 7.9 g/dL (14.0-18.0); Mean Corpuscular HGB CONC 29.2 g/dL (32.0-36.0); Mean Corpuscular Hemoglobin 16.9 pg (27.0-31.0); Mean Corpuscular Volume 57.8 fL (78.0-98.0); Mean Platelet Volume 6.1 fL (7.4-10.4); Platelet Count 271 thou/uL (130-400); RBC Distribution Width 20.2 % (11.5-14.5); Red Blood Cell (RBC) Count 4.65 mill/uL (4.70-6.10); White Blood Cell (WBC) Count 10.6 thou/uL (4.8-10.8)
[2019-03-19] MEDS ORDERED: Ipratropium Bromide 2.5 ml Neb NEB SCH (07:00)
[2019-03-19] MEDS: PROVENTIL INHALER 6.7 G (200 INHALATIONS) INH SCH ×2 (07:06→12:54)
[2019-03-19] MEDS ORDERED: metFORMIN 500 MG TAB PO SCH (08:00)
[2019-03-19] MEDS: HumaLOG 300 UNITS/3 ML VIAL SC SCH ×2 (09:21→13:06)
[2019-03-19] MEDS: Carvedilol 3.125 MG TAB PO SCH (09:22)
[2019-03-19] MEDS: INSULIN GLARGINE SC SCH (09:22)
[2019-03-19] MEDS: Chlorthalidone 25 MG TAB PO SCH (09:22)
[2019-03-19] MEDS: PRE FILLED SC SCH (09:22)
[2019-03-19] MEDS: Losartan 25 MG TAB PO SCH (09:22)
[2019-03-19] MEDS ORDERED: Promethazine HCl 25 MG/ML VIAL SLOW IVP PRN (11:04)
[2019-03-19] MEDS ORDERED: Promethazine HCl 25 MG/ML VIAL IM PRN (11:04)
--- NOTE | 2019-03-19 11:34 | CON ---
DATE OF CONSULTATION: 03/18/2019 REASON FOR CONSULTATION: Iron deficiency anemia. HISTORY OF PRESENT ILLNESS: Mr. Flores is a 69-year-old man who developed sudden onset of nausea, vomiting associated with chest pressure, pain radiating up his neck and arm. He has known coronary artery disease and atrial fibrillation. The patient presented to the ER for evaluation last evening. He underwent an emergent catheterization that showed patent coronary arteries. Today, he is feeling well without any further chest pain. However, on laboratory evaluation, he was noted to have a microcytic anemia with hemoglobin of 8.2 and MCV of 58.1. Iron parameters are consistent with iron deficiency with a ferritin level of 7.72 and 3% iron saturation with TIBC of 489. He denies having any overt bleeding. He denies having any melena. He is on both Plavix and Eliquis which have been on hold. The patient denies having had any prior peptic ulcer disease or GI bleeding. His last colonoscopy was out of town over 10 years ago. PAST MEDICAL HISTORY: 1. Adult onset diabetes. 2. Hypertension. 3. Chronic artery disease. 4. Peripheral vascular disease. 5. Hypothyroidism. 6. Atrial fibrillation. 7. Anal fissure repair. 8. Status post above knee amputation on the left. ALLERGIES: NO KNOWN DRUG ALLERGIES. MEDICATIONS: At home include; 1. Coreg. 2. Chlorthalidone. 3. Albuterol inhaler. 4. Insulin. 5. Jardiance. 6. Potassium. 7. Isosorbide mononitrate. 8. Pantoprazole. 9. Docusate. 10. Rosuvastatin. 11. Synthroid. 12. Plavix. 13. Eliquis. 14. Metformin. SOCIAL HISTORY: The patient is a former smoker, has stopped for many years. He has occasional alcohol usage. FAMILY HISTORY: Brother with colon cancer. Otherwise negative for any known GI problem, liver disease, or any other GI malignancy. REVIEW OF SYSTEMS: A 10-point review of systems did not show any other pertinent positives or negatives. PHYSICAL EXAMINATION: VITAL SIGNS: Temperature is 98.1, blood pressure 118/57, pulse of 65. GENERAL: He is alert, conversant, does not appear in distress. HEENT: Show anicteric sclerae. Oropharynx clear and moist CV: Shows normal S1, S2. Regular rate and rhythm. CHEST: Shows a breath sound. ABDOMEN: Mildly protuberant, but no distention. No tympany. He has active bowel sounds. Nontender to palpation. There is no hepatosplenomegaly. He has good bowel sounds. EXTREMITIES: Significant for high left AKA. There is no pedal edema in the right leg. LABORATORY DATA: Serum iron is 16, percent saturation is 3, TIBC 489, serum ferritin 772. WBC 21.2, platelet count of 305. ASSESSMENT: 1. Iron deficiency anemia with microcytic index, elevated TIBC, low percent saturation, and low serum ferritin. The patient does not have any overt bleeding except for occasional rectal bleeding from hemorrhoids. Occult GI blood loss needs to be excluded. 2. Non ST myocardial infarction? The patient has patent coronaries as I had discussed with Dr. Juarez with clearance to proceed with endoscopy. 3. Adult onset diabetes/hypertension/coronary artery disease/peripheral vascular disease. RECOMMENDATION: 1. Bowel prep tonight. 2. Diagnostic EGD and colonoscopy in a.m. to exclude any occult GI bleeding source. I have discussed this with Mr. Flores who agrees to proceed. Job ID: [id number]
--- NOTE | 2019-03-19 11:48 | OP ---
DATE OF PROCEDURE: 03/19/2019 LOG SORTING SUPERVISOR SURGEON: None. PROCEDURES PERFORMED: 1. Esophagogastroduodenoscopy with APC treatment. 2. Colonoscopy, diagnostic. INDICATIONS: 1. Iron deficiency anemia. 2. Chronic anticoagulation with Eliquis and also Plavix. 3. Last colonoscopy was 10 years ago. 4. The patient has no overt bleeding symptoms. MEDICATIONS: See Anesthesia record. FINDINGS: After discussion of the risks, benefits, and alternatives of the procedure, informed consent was obtained and witnessed. Pre-endoscopic cardiopulmonary examination was satisfactory. Time-out was performed before sedation was achieved. Sedation was achieved with Anesthesia assistance in the endoscopy unit. A Pentax adult upper endoscope was placed into the oropharynx and passed through the cricopharyngeus under direct visualization. The esophageal mucosa appeared normal throughout. The Z-line was variable and located at 44 cm from the incisors. The endoscope was advanced into the stomach. Forward and retroflexed views of the entire gastric mucosa were obtained. There was no evidence of any old blood or active bleeding in the stomach. There are two small arteriovenous malformations in the stomach. There is a small one in the gastric antrum and a slightly larger one in the gastric fundus. I treated both of these lesions with argon plasma coagulation. They were ablated successfully and hemostasis was maintained. The endoscope was advanced through the pylorus and into the first and second portions of the duodenum, which appeared normal. The upper endoscope was completely withdrawn and the patient was repositioned. Digital rectal exam was performed, which demonstrated some external hemorrhoids. The colonoscope was inserted into the anus and passed forward to the cecum in the usual fashion. The cecal base was identified by the appendiceal orifice as well as the ileocecal valve. The terminal ileum was intubated and the ileal mucosa appeared normal. The colonoscope was slowly withdrawn in a gradual circumferential manner with careful examination of the entire colonic mucosa. The quality of the prep was good. There was no evidence of any old blood or active bleeding throughout the colon. In the cecum, there are two small AVMs and one medium-sized AVM, none of these areas are actively bleeding due to the increased risk of APC treatment in the cecum, and the fact that these AVMs are not bleeding, I did not apply any therapy to these lesions. The remainder of the colonic mucosa appeared normal throughout. There were no polyps, masses, or lesions visualized. Retroflexion in the rectum demonstrated some small internal hemorrhoids. The colonoscope was completely withdrawn and the patient allowed to recover. The patient tolerated the procedure well. There were no immediate postprocedure complications. IMPRESSION: 1. Two small gastric arteriovenous malformations, in the fundus and the antrum, both successfully treated with argon plasma coagulation. 2. Three small cecal arteriovenous malformations, nonbleeding, not treated on today's examination. 3. Internal hemorrhoids. 4. Otherwise normal esophagogastroduodenoscopy and colonoscopy to the terminal ileum. RECOMMENDATIONS: 1. Daily oral proton pump inhibitor for 1 month. 2. Iron supplementation. 3. Repeat colonoscopy for screening in 10 years. 4. Minimize anticoagulation if possible from a cardiac perspective. He likely has more arteriovenous malformations throughout of the nonvisualized small bowel. 5. Follow up in the GI [facility] with Dr. Haywood or his physician insurance administrative assistant in the next 3 to 4 weeks. GI will sign off. Please call back with any questions or concerns. Job ID: [id number]
[2019-03-19 12:06] VITALS: BP 101/50; TEMP 97.6
--- NOTE | 2019-03-19 15:22 | PDOC.FM ---
- Subjective Subjective: Pt feeling well this mornign. reports good compliance with his prep in anticipation for scope. Reports fatigue over the last month. - Objective Vital Signs & Weight: Vital Signs (12 hours) Temp Pulse Resp BP Pulse Ox 03/19/19 12:54 64 16 95 03/19/19 11:45 97.6 F 70 18 101/50 L 96 03/19/19 07:53 97.7 F 69 18 143/63 H 96 03/19/19 07:09 80 16 93 L 03/19/19 07:06 80 16 93 L 03/19/19 03:50 97.8 F 63 18 119/58 L 95 Weight Admit Weight 90.356 kg Weight 90.356 kg I&O: 03/18/19 03/19/19 03/20/19 06:59 06:59 06:59 Intake Total 1560 4960 Output Total 2029 1620 Balance -470 3340 Result Diagrams: 03/19/19 05:09 03/18/19 05:26 Phys Exam - Physical Examination Constitutional: NAD HEENT: moist MMs, sclera anicteric Neck: supple, full ROM Respiratory: no wheezing, clear to auscultation bilateral Cardiovascular: RRR, no significant murmur Gastrointestinal: soft, non-tender Musculoskeletal: pulses present Neurological: normal sensation, moves all 4 limbs Psychiatric: normal affect, A&O x 3 Skin: no rash, normal turgor Dx/Plan (1) CAD (coronary artery disease) Code(s): I25.10 - ATHSCL HEART DISEASE OF [place] CORONARY ARTERY W/O ANG PCTRS Status: Acute Qualifiers: Coronary Disease-Associated Artery/Lesion type: [place] artery [place] vs. transplanted heart: [place] heart Associated angina: without angina Qualified Code(s): I25.10 - Atherosclerotic heart disease of [place] coronary artery without angina pectoris (2) COPD (chronic obstructive pulmonary disease) Status: Acute (3) Microcytic anemia Code(s): D50.9 - IRON DEFICIENCY ANEMIA, UNSPECIFIED Status: Acute (4) Diabetes mellitus Code(s): E11.9 - TYPE 2 DIABETES MELLITUS WITHOUT COMPLICATIONS Status: Chronic Qualifiers: Diabetes mellitus type: type 2 (5) Hypertension Code(s): I10 - ESSENTIAL (PRIMARY) HYPERTENSION Status: Chronic - Plan Plan: iron deficiency anemia A- Hgb down to 8.2 today & iron studies support diagnosis of DANIEL. Patient has multiple risk factors for colon malignancy including a smoking history and FH of colon CA so this much be ruled out as a potential source of his anemia. Has had a colonoscopy but was 10 [address] or [address] Haywood with GI was consulted by [place] prior to us assuming care and plans to have the patient complete prep overnight with plans for an EGD/colonoscopy today. Eliquis has been help for today and will continue to hold pending recs from cards & GI. P- plan for upper and lower endoscopy today -f/u GI recs -plan for iron supplementation Leukocytosis 2/2 presumed CAP, resolved A- WBC increased from 10 on admission to 20 today. Patient has not fevered but does reports increased SOB and noted rust-colored sputum today. CXR on admission could not rule out possible pneumonitis of RLL. repeat CXR and WBC wnl. procal also negative. P- DC ABX elevated troponin - Patient s/p cath this admission which was unchanged from previous exams requiring no new intervention. Therefore deemed to most likely be 2/2 demand ischemia in setting of anemia and/or acute infection. Cardiology also on board, appreciate recs. IDDMII - Will resume home meds & hold metformin until 48 hours post-cath. Will continue ACHS accuchecks and hypoglycemia protocol. CAD s/p stent placement - Will resume home meds. paroxysmal atrial fibrillation - Hold eliquis for now in setting of anemia but will resume pending GI & cards recs following scopes tomorrow. Will resume other home meds. COPD - Will continue home meds & O2 support to maintain sats >90%. Will wean O2 as tolerated by patient. hypothyroidism - Per chart review recent TSH suggestive of mild overtreatment with TSH of 0.2. Will continue home meds for now & have patient follow-up with PCP as outpatient for dosage adjustment PRN. HTN - Will resume home meds. HLD - Will continue home meds. PVD - Will continue home meds.
--- NOTE | 2019-03-19 19:44 | PDOC.CTH ---
Cardiology Progress Note - Subjective No new issues. Had an AVM cauterized during scope. - Objective Vital Signs Temp Pulse Resp BP Pulse Ox 03/19/19 12:54 64 16 95 03/19/19 11:45 97.6 F 70 18 101/50 L 96 03/19/19 07:53 97.7 F 69 18 143/63 H 96 Admit Weight 199 lb 3.2 oz Weight 199 lb 3.2 oz 03/18/19 03/19/19 03/20/19 06:59 06:59 06:59 Intake Total 1560 4960 Output Total 2029 1620 Balance -470 3340 - Physical Examination General/Neuro: alert & oriented x3, NAD Neck: no JVD present Lungs: CTA, unlabored respirations Heart: RRR Abdomen: NT/ND Extremities: other: (no edema) - Telemetry Telemetry Rhythm: NSR - Labs Result Diagrams: 03/19/19 05:09 03/18/19 05:26 Troponin/CKMB CK-MB (CK-2) 23.8 ng/mL (0-6.6) H* 03/18/19 05:26 Troponin I 6.684 ng/mL (< 0.028) H* 03/18/19 05:26 - Assessment/Plan 1. Type 2 VT, demand ischemia. 2. Afib RVR, paroxysmal, back in sinus. 3. Hypertensive emergency. 4. Nausea/vomiting, 5. Anemia, new onset. 6. PVD 7. Type 2 DM. 8. GI bleed. PLAN: - Stop plavix. - Will plan on starting Eliquis in the future once safe from GI perspective.
--- NOTE | 2019-03-20 04:21 | DIS ---
DATE OF ADMISSION: 03/17/2019 DATE OF DISCHARGE: 03/19/2019 ADMITTING ATTENDING: Luis M Seay MD DISCHARGE ATTENDING: Natalio Richardson MD CONSULTS: 1. Cardiology, Charly Winchester MD. 2. Gastroenterology, Dr. Haywood. 3. [facility]. PROCEDURES PERFORMED: 1. On 03/16/2019, chest x-ray, impression, linear patchy density right lung base probably related to superimposition of structures and atelectasis, developing area of pneumonitis cannot be excluded. Follow up chest x-ray is recommended. 2. On 03/18/2019, chest x-ray, impression, no acute cardiopulmonary process. 3. On 03/17/2019, cardiac catheterization. DISCHARGE MEDICATIONS: 1. Docusate sodium 100 mg p.o. at bedtime. 2. Metformin 1000 mg p.o. b.i.d. 3. Insulin lispro 12 units subcutaneous as directed. 4. Rosuvastatin 40 mg p.o. at bedtime. 5. Carvedilol 3.125 mg p.o. b.i.d. 6. Spiriva 18 mcg inhaled daily. 7. Pantoprazole 40 mg p.o. daily. 8. Losartan 100 mg p.o. daily. 9. Isosorbide mononitrate 60 mg p.o. daily. 10. Insulin glargine 66 units subcutaneous q.a.m. 11. Jardiance 25 mg p.o. daily. 12. Chlorthalidone 25 mg p.o. daily. 13. ProAir 8.5 g inhaled t.i.d. 14. Levothyroxine 150 mcg p.o. daily. 15. Ferrous sulfate 325 mg p.o. daily. DISCONTINUED MEDICATIONS: 1. Plavix 75 mg p.o. daily. 2. Eliquis 5 mg p.o. b.i.d. PRIMARY DIAGNOSIS: Chest pain. 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 HISTORY OF PRESENT ILLNESS/HOSPITAL COURSE: This is a 69-year-old male with past medical history of coronary artery disease, who presented to the hospital with complaint of chest pain. In the ED, he was noted to have some ST elevation on his EKG and so, the patient was taken back for urgent catheterization which was within normal limits. Routine blood work following one revealed the patient was quite anemic. He also has leukocytosis with a questionable chest x-ray. The patient was admitted to the Family Medicine team for further workup of that. Iron studies reveal iron deficiency anemia and so, Gastroenterology was consulted, who performed EGD and colonoscopy. The patient was found to have colonic AVMs, which were bleeding and then intraoperatively resolved by Gastroenterology. The patient was deemed stable and instructed to make followup appointments with GI, Cardiology, and primary care physician and for the time being to discontinue Plavix and Eliquis. Regarding the patient's questionable pneumonia, repeat chest x-ray was done and CBC, which showed normal white count, normal chest x-ray and normal procalcitonin and so, it was deemed the patient was not with pneumonia. DISPOSITION: Stable. DISCHARGE INSTRUCTIONS: 1. Location: Home. 2. Activity: As tolerated. 3. Diet: Healthy heart diabetic diet. 4. Followup: Follow up with Dr. Juarez in 3 to 4 weeks, with Dr. Will Haywood in 2 to 3 weeks, with Dr. Natalio Richardson in 10 days. Job ID: [id number]
[2019-03-20] MEDS ORDERED: metFORMIN 500 MG TAB PO SCH (08:00)
== END 2019-03-19 14:16 | disposition home or self-care (01) | DRG 280 ==
LOC: ERS 23:02 → 2NO 03-17 00:36
PROVIDERS: ADMIT Internal Medicine Cardiovascular Disease; ATTEND Internal Medicine Cardiovascular Disease
PROC: 4A023N7 Measurement of Cardiac Sampling and Pressure, Left Heart, Percutaneous Approach (ICD-10-PCS; principal; 2019-03-17)
PROC: B2111ZZ Fluoroscopy of Multiple Coronary Arteries using Low Osmolar Contrast (ICD-10-PCS; 2019-03-17)
PROC: B2151ZZ Fluoroscopy of Left Heart using Low Osmolar Contrast (ICD-10-PCS; 2019-03-17)
PROC: 0W3P8ZZ Control Bleeding in Gastrointestinal Tract, Via Natural or Artificial Opening Endoscopic (ICD-10-PCS; 2019-03-17)
PROC: 0DJD8ZZ Inspection of Lower Intestinal Tract, Via Natural or Artificial Opening Endoscopic (ICD-10-PCS; 2019-03-17)
DX: I21.A1 Myocardial infarction type 2 (principal); J18.9 Pneumonia, unspecified organism; I25.10 Atherosclerotic heart disease of native coronary artery without angina pectoris; D50.9 Iron deficiency anemia, unspecified; E11.51 Type 2 diabetes mellitus with diabetic peripheral angiopathy without gangrene; J44.9 Chronic obstructive pulmonary disease, unspecified; E03.9 Hypothyroidism, unspecified; I48.0 Paroxysmal atrial fibrillation; I16.0 Hypertensive urgency; K64.4 Residual hemorrhoidal skin tags; K31.819 Angiodysplasia of stomach and duodenum without bleeding; K64.8 Other hemorrhoids; Z95.5 Presence of coronary angioplasty implant and graft; Z99.81 Dependence on supplemental oxygen; Z89.612 Acquired absence of left leg above knee; Z87.891 Personal history of nicotine dependence; Z91.041 Radiographic dye allergy status; Z79.4 Long term (current) use of insulin; Z79.01 Long term (current) use of anticoagulants; Z79.51 Long term (current) use of inhaled steroids; Z79.899 Other long term (current) drug therapy
CPT/HCPCS: 36415; 36416; 71045; 71046; 76942; 80048; 80053; 81001; 82550; 82553; 82728; 83540; 83550; 83690; 84145; 84484; 85025; 85060; 86850; 86900; 86901; 87040; 87070; 87205; 93005; 93306; 93458; 93798; 94640; 96374; 96375; 99152; C1769; J0456; J0696; J1200; J1644; J1815; J1825; J2250; J2405; J2930; J3010; J3490; J7050; Q9967

== ENCOUNTER 2019-05-01 00:05 | Emergency (ER) | payer MEDICARE ==
[2019-05-01 00:41] LABS: INR-International Normal Ratio 1.2; Prothrombin Time 15.5 SEC (12.0-14.7)
[2019-05-01 00:52] LABS: Hemoglobin 12.9 g/dL (14.0-18.0); Mean Corpuscular HGB CONC 27.7 g/dL (32.0-36.0); Mean Corpuscular Hemoglobin 19.2 pg (27.0-31.0); Mean Corpuscular Volume 69.5 fL (78.0-98.0); Mean Platelet Volume 5.7 fL (7.4-10.4); Platelet Count 361 thou/uL (130-400); White Blood Cell (WBC) Count 11.9 thou/uL (4.8-10.8)
[2019-05-01 00:57] LABS: ALT (SGPT) 10 U/L (8-55); AST (SGOT) 15 U/L (5-34); Albumin 4.7 g/dL (3.4-4.8); Alkaline Phosphatase 94 U/L (40-150); Anion Gap 16 mmol/L (10-20); BUN (Urea Nitrogen) 19 mg/dL (8.4-25.7); Bilirubin, Total 0.4 mg/dL (0.2-1.2); Calc. Creatinine Clearance 0 mL/min (70-130); Carbon Dioxide 26 mmol/L (23-31); Chloride 100 mmol/L (98-107); Estimated GFR-MDRD 71; Globulin 2.9 g/dL (2.4-3.5); Glucose 146 mg/dL (80-115); Lipase 17 U/L (8-78); Potassium 3.6 mmol/L (3.5-5.1); Protein, Total 7.6 g/dL (5.8-8.1); Sodium 138 mmol/L (136-145)
[2019-05-01 01:04] LABS: #Basophils 0.1 thou/uL (0.0-0.2); #Eosinphils 0.2 thou/uL (0.0-0.7); #Lymphocytes 2.2 thou/uL (1.20-3.40); #Monocytes 1.2 thou/uL (0.11-0.59); #Neutrophils 8.2 thou/uL (1.40-6.50); %Basophils 0.5 % (0.0-1.0); %Eosinophils 2.1 % (0.0-10.0); %Lymphocytes 18.2 % (21.0-51.0); %Monocytes 10.3 % (0.0-10.0); %Neutrophils 68.9 % (42.0-75.0); Anisocytosis SLIGHT = 6-15 cells (100X) (0-5/hpf); Hypochromia SLIGHT = 6-15 cells (100X) (0-5/hpf); MDiff Complete? YES; Microcytosis SLIGHT = 6-15 cells (100X) (0-5/hpf)
[2019-05-01] MEDS ORDERED: Carvedilol 3.125 MG TAB PO SCH (01:15)
--- NOTE | 2019-05-01 07:48 | RAD ---
Chest one view HISTORY: Palpitations. Chest pain. COMPARISON: 03/18/2019. FINDINGS: Cardiac silhouette is magnified by projection. Pulmonary vasculature upper limits of normal . Mediastinum is midline. Lungs remain slightly hyperinflated. Linear scarring at the right base is similar in appearance to the previous exam. No lobar consolidation or evidence of pneumothorax cardia c monitor leads overlie the chest. IMPRESSION: Chronic-type findings are stable. No active cardiopulmonary abnormalities are demonstrate d.
--- NOTE | 2019-05-02 14:08 | EKG ---
Test Reason : Blood Pressure : / mmHG Vent. Rate : 148 BPM Atrial Rate : 150 BPM P-R Int : 000 ms QRS Dur : 094 ms QT Int : 316 ms P-R-T Axes : 000 042 -66 degrees QTc Int : 496 ms Atrial fibrillation with rapid ventricular response with premature ventricular or aberrantly conducte d complexes Abnormal ECG Confirmed by MARCO A CARNEY ([id number]), editorial project manager ANA MARIANO ([id number]) on 05/02/2019 2:07:56 PM Referred By: Confirmed By:MARCO A CARNEY
--- NOTE | 2019-05-02 14:08 | EKG ---
Test Reason : Blood Pressure : / mmHG Vent. Rate : 077 BPM Atrial Rate : 077 BPM P-R Int : 168 ms QRS Dur : 094 ms QT Int : 442 ms P-R-T Axes : 071 019 -42 degrees QTc Int : 500 ms Sinus rhythm with Premature atrial complexes with Abberant conduction T wave abnormality, consider inferior ischemia Prolonged QT Abnormal ECG Confirmed by MARCO A CARNEY ([id number]), acquisitions editor ANA MARIANO ([id number]) on 05/02/2019 2:08:00 PM Referred By: Confirmed By:MARCO A CARNEY
== END 2019-05-01 01:57 | disposition home or self-care (01) ==
LOC: ERS 00:05
DX: I48.0 Paroxysmal atrial fibrillation (principal); I49.9 Cardiac arrhythmia, unspecified; I48.91 Unspecified atrial fibrillation; E11.9 Type 2 diabetes mellitus without complications; I10 Essential (primary) hypertension; D64.9 Anemia, unspecified; Z79.01 Long term (current) use of anticoagulants; Z79.4 Long term (current) use of insulin; Z79.899 Other long term (current) drug therapy
CPT/HCPCS: 71045; 80053; 83690; 84484; 85025; 85610; 85730; 93005; 94760

== ENCOUNTER 2021-08-04 11:17 | Emergency (ER) | payer MEDICARE | END 2021-08-04 13:30 | disposition home or self-care (01) | LOC: ERS 11:17 | DX: M79.671 Pain in right foot (principal); I48.91 Unspecified atrial fibrillation; E11.9 Type 2 diabetes mellitus without complications; I10 Essential (primary) hypertension; D64.9 Anemia, unspecified; Z79.01 Long term (current) use of anticoagulants | CPT/HCPCS: 99283 ==

== ENCOUNTER 2022-10-09 20:37 | Inpatient (IN) | payer OTHER ==
[2022-10-09] MEDS ORDERED: Diltiazem 125 MG/25 ML ONE ×3 (21:02→21:32)
[2022-10-09 21:20] LABS: #Basophils 0.1 thou/uL (0.0-0.2); #Eosinphils 0.5 thou/uL (0.0-0.7); #Monocytes 0.9 thou/uL (0.11-0.59); #Neutrophils 5.8 thou/uL (1.40-6.50); %Basophils 0.6 % (0.0-1.0); %Eosinophils 4.9 % (0.0-10.0); %Monocytes 9.5 % (0.0-10.0); %Neutrophils 63.1 % (42.0-75.0); Mean Corpuscular HGB CONC 32.6 g/dL (32.0-36.0); Mean Corpuscular Hemoglobin 29.3 pg (27.0-31.0); Mean Platelet Volume 8.6 fL (7.4-10.4); Platelet Count 249 10x3/uL (130-400); RBC Distribution Width 12.8 % (11.5-14.5); Red Blood Cell (RBC) Count 5.81 mill/uL (4.70-6.10); White Blood Cell (WBC) Count 9.2 10x3/uL (4.8-10.8)
[2022-10-09 21:54] LABS: ALT (SGPT) 10 U/L (8-55); AST (SGOT) 14 U/L (5-34); Albumin 4.9 g/dL (3.4-4.8); Alkaline Phosphatase 69 U/L (40-110); Anion Gap 19 mmol/L (10-20); BUN (Urea Nitrogen) 19 mg/dL (8.4-25.7); Bilirubin, Total 0.4 mg/dL (0.2-1.2); Calc. Creatinine Clearance 0 mL/min (70-130); Calcium 9.9 mg/dL (7.8-10.44); Carbon Dioxide 24 mmol/L (23-31); Chloride 100 mmol/L (98-107); Estimated GFR 67; Globulin 3.1 g/dL (2.4-3.5); Glucose 220 mg/dL (80-115); Potassium 3.8 mmol/L (3.5-5.1); Sodium 139 mmol/L (136-145)
[2022-10-09 22:06] LABS: CKMB 3.5 ng/mL (0-6.6)
[2022-10-10] MEDS ORDERED: Acetaminophen 650 MG Suppository PR PRN (00:11)
[2022-10-10] MEDS ORDERED: Calcium Carbonate 500 MG ChewTAB PO PRN (00:11)
[2022-10-10] MEDS ORDERED: Acetaminophen 325 MG TAB PO PRN (00:11)
[2022-10-10] MEDS ORDERED: Dextrose 50% Abboject 50 ML SYRINGE SLOW IVP PRN (00:11)
[2022-10-10] MEDS ORDERED: Dextrose 5% in Water 1,000 ML IV PRN (00:11)
[2022-10-10] MEDS ORDERED: Ondansetron ODT 4 MG TAB PO PRN (00:11)
[2022-10-10] MEDS ORDERED: Ondansetron PF 4 MG/2 ML Vial IVP PRN (00:11)
[2022-10-10] MEDS ORDERED: HumaLOG 300 UNITS/3 ML VIAL SC PRN ×2 (00:11)
[2022-10-10 01:46] LABS: Troponin I 0.512 ng/mL (< 0.028)
[2022-10-10 03:05] LABS: #Basophils 0.1 thou/uL (0.0-0.2); #Eosinphils 0.6 thou/uL (0.0-0.7); #Lymphocytes 2.7 thou/uL (1.20-3.40); #Monocytes 0.9 thou/uL (0.11-0.59); %Basophils 0.9 % (0.0-1.0); %Eosinophils 5.7 % (0.0-10.0); %Lymphocytes 25.9 % (21.0-51.0); %Monocytes 9.1 % (0.0-10.0); %Neutrophils 58.4 % (42.0-75.0); Hemoglobin 15.2 g/dL (14.0-18.0); Mean Corpuscular HGB CONC 34.4 g/dL (32.0-36.0); Mean Corpuscular Hemoglobin 31.5 pg (27.0-31.0); Mean Corpuscular Volume 91.4 fl (78.0-98.0); Mean Platelet Volume 8.2 fL (7.4-10.4); Platelet Count 214 10x3/uL (130-400); RBC Distribution Width 12.6 % (11.5-14.5); Red Blood Cell (RBC) Count 4.84 mill/uL (4.70-6.10); White Blood Cell (WBC) Count 10.3 10x3/uL (4.8-10.8)
[2022-10-10 03:10] LABS: Hemoglobin A1c 8.5 % (4.0-6.0)
[2022-10-10 03:37] LABS: Anion Gap 16 mmol/L (10-20); BUN (Urea Nitrogen) 22 mg/dL (8.4-25.7); Calc. Creatinine Clearance 0 mL/min (70-130); Calcium 9.1 mg/dL (7.8-10.44); Carbon Dioxide 22 mmol/L (23-31); Chloride 104 mmol/L (98-107); Estimated GFR 68; Glucose 161 mg/dL (80-115); Potassium 3.5 mmol/L (3.5-5.1); Sodium 138 mmol/L (136-145)
[2022-10-10 03:45] LABS: Troponin I 0.821 ng/mL (< 0.028)
[2022-10-10 07:56] LABS: Phosphorus 4.3 mg/dL (2.3-4.7)
[2022-10-10] MEDS: Levothyroxine Sodium 25 MCG TAB PO SCH (08:03)
[2022-10-10] MEDS: Levothyroxine Sodium 112 MCG TAB PO SCH (08:03)
[2022-10-10] MEDS ORDERED: HumaLOG 300 UNITS/3 ML VIAL ONE (08:14)
[2022-10-10] MEDS: HumaLOG 300 UNITS/3 ML VIAL SC SCH (08:30)
[2022-10-10] MEDS: metFORMIN 500 MG TAB PO SCH ×2 (08:47→18:17)
[2022-10-10] MEDS ORDERED: Clopidogrel Bisulfate 75 MG TAB ONE (08:59)
[2022-10-10] MEDS ORDERED: Levothyroxine Sodium 125 MCG TAB PO SCH (09:00)
[2022-10-10] MEDS ORDERED: Ferrous Sulfate 325 MG TAB PO SCH (09:00)
[2022-10-10] MEDS ORDERED: Non-Formulary Item 1 EACH (Sildenafil Citrate [Sildenafil Citrate] 50 MG Tablet) PO SCH (09:00)
[2022-10-10] MEDS: Carvedilol 6.25 MG TAB PO SCH ×2 (09:13→21:48)
[2022-10-10] MEDS: Apixaban 5 MG TAB PO SCH ×2 (09:13→21:48)
[2022-10-10] MEDS: Clopidogrel Bisulfate 75 MG TAB PO SCH (09:14)
[2022-10-10] MEDS: Empagliflozin 25 MG TAB PO SCH (09:14)
[2022-10-10] MEDS: Chlorthalidone 25 MG TAB PO SCH (09:14)
[2022-10-10] MEDS: Losartan 25 MG TAB PO SCH (09:15)
[2022-10-10] MEDS ORDERED: Potassium Chloride 20 MEQ TAB PO SCH (09:30)
[2022-10-10] MEDS: Insulin Glargine 30 UNITS/0.3 ML VIAL SC SCH (09:35)
[2022-10-10] MEDS ORDERED: Potassium Chloride 20 MEQ TAB ONE (12:29)
[2022-10-10] MEDS ORDERED: HumaLOG 300 UNITS/3 ML VIAL SC SCH (17:00)
[2022-10-10] MEDS ORDERED: Rosuvastatin 20 MG TAB PO SCH (21:00)
[2022-10-10] MEDS ORDERED: Docusate 100 MG CAP PO SCH (21:00)
[2022-10-10 21:50] VITALS: BMI 27.9
[2022-10-11 04:57] LABS: Anion Gap 18 mmol/L (10-20); BUN (Urea Nitrogen) 26 mg/dL (8.4-25.7); Calc. Creatinine Clearance 82 mL/min (70-130); Calcium 9.2 mg/dL (7.8-10.44); Carbon Dioxide 21 mmol/L (23-31); Chloride 103 mmol/L (98-107); Estimated GFR 76; Glucose 124 mg/dL (80-115); Potassium 4.1 mmol/L (3.5-5.1); Sodium 138 mmol/L (136-145)
[2022-10-11] MEDS: Levothyroxine Sodium 25 MCG TAB PO SCH (05:46)
[2022-10-11] MEDS: Levothyroxine Sodium 112 MCG TAB PO SCH (05:46)
[2022-10-11] MEDS: Insulin Glargine 30 UNITS/0.3 ML VIAL SC SCH (09:21)
[2022-10-11] MEDS: Chlorthalidone 25 MG TAB PO SCH (09:24)
[2022-10-11] MEDS: Clopidogrel Bisulfate 75 MG TAB PO SCH (09:25)
[2022-10-11] MEDS: Losartan 25 MG TAB PO SCH (09:25)
[2022-10-11] MEDS: Apixaban 5 MG TAB PO SCH (09:26)
[2022-10-11] MEDS: Carvedilol 6.25 MG TAB PO SCH (09:26)
[2022-10-11] MEDS: metFORMIN 500 MG TAB PO SCH (09:27)
[2022-10-11] MEDS: Empagliflozin 25 MG TAB PO SCH (09:27)
[2022-10-11] MEDS: HumaLOG 300 UNITS/3 ML VIAL SC SCH (10:35)
[2022-10-11 16:04] VITALS: BP 140/64; TEMP 97.3
[2022-10-11] MEDS ORDERED: Dronedarone HCl 400 MG TAB PO SCH (17:00)
[2022-10-11] MEDS ORDERED: Carvedilol 6.25 MG TAB PO SCH (21:00)
== END 2022-10-11 17:03 | disposition home or self-care (01) | DRG 282 ==
LOC: ERS 20:37 → ERHOLD 23:32 → OBSVTOIN 10-10 09:18 → 2NO 10-10 19:20
PROVIDERS: ADMIT Student in an Organized Health Care Education/Training Program; ATTEND Emergency Medicine
DX: I48.0 Paroxysmal atrial fibrillation (principal); I21.A1 Myocardial infarction type 2; Z20.822 Contact with and (suspected) exposure to COVID-19; I25.10 Atherosclerotic heart disease of native coronary artery without angina pectoris; I10 Essential (primary) hypertension; E03.9 Hypothyroidism, unspecified; K21.9 Gastro-esophageal reflux disease without esophagitis; D50.9 Iron deficiency anemia, unspecified; E11.51 Type 2 diabetes mellitus with diabetic peripheral angiopathy without gangrene; R00.1 Bradycardia, unspecified; Z91.041 Radiographic dye allergy status; Z79.899 Other long term (current) drug therapy; Z79.4 Long term (current) use of insulin; Z79.84 Long term (current) use of oral hypoglycemic drugs; Z89.612 Acquired absence of left leg above knee; Z95.5 Presence of coronary angioplasty implant and graft; Z82.3 Family history of stroke; Z82.49 Family history of ischemic heart disease and other diseases of the circulatory system
CPT/HCPCS: 36415; 36416; 71045; 80048; 80053; 82553; 83036; 83735; 84100; 84484; 85025; 93005; 93010; J1815; U0003; U0005

== ENCOUNTER 2022-12-10 11:29 | Outpatient (CLI) | payer OTHER ==
[2022-12-10 13:03] LABS: Hemoglobin 14.5 g/dL (13.5-17.5); Mean Corpuscular HGB CONC 31.9 g/dL (32.0-36.0); Mean Corpuscular Hemoglobin 27.3 pg (27.0-33.0); Mean Corpuscular Volume 85.5 fl (81.2-95.1); Mean Platelet Volume 10.7 fl (7.4-10.4); Platelet Count 310 10x3/uL (150-450); RBC Distribution Width 14.7 % (11.5-14.5); Red Blood Cell (RBC) Count 5.32 10x6/uL (4.32-5.72); White Blood Cell (WBC) Count 10.8 10x3/uL (3.5-10.5)
[2022-12-10 13:18] LABS: INR-International Normal Ratio 1.1; PTT 29.9 sec (22.0-33.0); Prothrombin Time 12.3 sec (9.5-12.1)
[2022-12-10 13:37] LABS: Anion Gap 21 mmol/L (10-20); BUN (Urea Nitrogen) 18 mg/dL (8.4-25.7); Calc. Creatinine Clearance 0 mL/min (70-130); Calcium 9.5 mg/dL (7.8-10.44); Carbon Dioxide 19 mmol/L (23-31); Chloride 101 mmol/L (98-107); Estimated GFR 73; Glucose 278 mg/dL (80-115); Potassium 4.3 mmol/L (3.5-5.1); Sodium 137 mmol/L (136-145)
== END 2022-12-10 11:30 | disposition home or self-care (01) ==
LOC: LABBT 11:29
PROVIDERS: ATTEND Internal Medicine Cardiovascular Disease
DX: Z01.812 Encounter for preprocedural laboratory examination (principal); I48.0 Paroxysmal atrial fibrillation
CPT/HCPCS: 80048; 85027; 85610; 85730

== ENCOUNTER 2022-12-12 05:48 | Observation (INO) | payer MEDICARE, OTHER ==
[2022-12-12] MEDS ORDERED: Protamine Sulfate 50 MG/5 ML VIAL ONE (06:51)
[2022-12-12] MEDS ORDERED: Isoproterenol 0.2 MG/1 ML AMP ONE (06:51)
[2022-12-12] MEDS ORDERED: Heparin 25,000 units/D5W 500 ML ONE (06:51)
[2022-12-12] MEDS ORDERED: Heparin 10,000 UNITS/ 10 ML VIAL ONE (06:51)
[2022-12-12] MEDS ORDERED: SUGAMMADEX SODIUM 200 MG/2 ML VIAL ONE (07:13)
[2022-12-12] MEDS ORDERED: FENTANYL 50 MCG/ML 1 ML VIAL ONE ×2 (07:13)
[2022-12-12] MEDS ORDERED: PROPOFOL 20 ML ONE (07:13)
[2022-12-12] MEDS ORDERED: Esmolol 100 MG/10 ML VIAL ONE (08:00)
[2022-12-12] MEDS ORDERED: Dexamethasone 20 MG/5 ML VIAL ONE (08:00)
[2022-12-12] MEDS ORDERED: Rocuronium Bromide 10 MG/ML (10ML VIAL) ONE (08:00)
[2022-12-12] MEDS ORDERED: Ondansetron PF 4 MG/2 ML Vial ONE (08:00)
[2022-12-12] MEDS ORDERED: PROPOFOL 200 MG/20 ML VIAL ONE (08:00)
[2022-12-12] MEDS ORDERED: Lidocaine 1% PF 5 ML VIAL ONE (08:00)
[2022-12-12] MEDS ORDERED: Vecuronium 10 MG VIAL ONE (08:00)
[2022-12-12] MEDS ORDERED: Amiodarone 150 MG/3 ML VIAL ONE ×2 (11:22→11:26)
[2022-12-12] MEDS ORDERED: Ketorolac Tromethamine 30 MG/ML VIAL IVP PRN (13:05)
[2022-12-12] MEDS ORDERED: HumaLOG 300 UNITS/3 ML VIAL SC SCH (17:00)
[2022-12-12] MEDS: metFORMIN 500 MG TAB PO SCH (18:04)
[2022-12-12 18:12] VITALS: BMI 28.8
[2022-12-12] MEDS ORDERED: Rosuvastatin 20 MG TAB PO SCH (21:00)
[2022-12-12] MEDS: Insulin Glargine 30 UNITS/0.3 ML VIAL SC SCH (21:52)
[2022-12-12] MEDS: Apixaban 5 MG TAB PO SCH (21:52)
[2022-12-12] MEDS: Carvedilol 3.125 MG TAB PO SCH (21:52)
[2022-12-13 05:21] LABS: #Eosinphils 0.1 thou/uL (0.0-0.7); #Monocytes 1.4 thou/uL (0.11-0.59); #Neutrophils 13.4 thou/uL (1.40-6.50); %Basophils 0.1 % (0.0-1.0); %Eosinophils 0.5 % (0.0-10.0); %Lymphocytes 11.9 % (21.0-51.0); %Monocytes 8.2 % (0.0-10.0); %Neutrophils 79.2 % (42.0-75.0); Hemoglobin 13.3 g/dL (14.0-18.0); Mean Corpuscular HGB CONC 32.2 g/dL (32.0-36.0); Mean Corpuscular Hemoglobin 28.8 pg (27.0-31.0); Mean Corpuscular Volume 89.3 fl (78.0-98.0); Mean Platelet Volume 8.6 fL (7.4-10.4); Platelet Count 239 10x3/uL (130-400); RBC Distribution Width 13.6 % (11.5-14.5); Red Blood Cell (RBC) Count 4.61 mill/uL (4.70-6.10); White Blood Cell (WBC) Count 16.9 10x3/uL (4.8-10.8)
[2022-12-13 05:36] LABS: Anion Gap 14 mmol/L (10-20); BUN (Urea Nitrogen) 23 mg/dL (8.4-25.7); Calc. Creatinine Clearance 86 mL/min (70-130); Calcium 8.3 mg/dL (7.8-10.44); Carbon Dioxide 20 mmol/L (23-31); Chloride 104 mmol/L (98-107); Estimated GFR 78; Glucose 220 mg/dL (80-115); Magnesium 1.7 mg/dL (1.6-2.6); Potassium 3.5 mmol/L (3.5-5.1); Sodium 134 mmol/L (136-145)
[2022-12-13] MEDS ORDERED: Levothyroxine Sodium 112 MCG TAB PO SCH (06:00)
[2022-12-13] MEDS ORDERED: Levothyroxine Sodium 25 MCG TAB PO SCH (06:00)
[2022-12-13] MEDS ORDERED: Sildenafil Citrate 20 MG TAB PO SCH (09:00)
[2022-12-13] MEDS ORDERED: Clopidogrel Bisulfate 75 MG TAB PO SCH (09:00)
[2022-12-13] MEDS ORDERED: Empagliflozin 25 MG TAB PO SCH (09:00)
[2022-12-13] MEDS ORDERED: Losartan 25 MG TAB PO SCH (09:00)
[2022-12-13] MEDS ORDERED: Chlorthalidone 25 MG TAB PO SCH (09:00)
[2022-12-13] MEDS ORDERED: COLACE PO SCH (09:00)
[2022-12-13] MEDS ORDERED: Furosemide 40 MG/4 ML VIAL SLOW IVP SCH (09:15)
[2022-12-13] MEDS ORDERED: Potassium Chloride 20 MEQ TAB PO SCH (09:15)
[2022-12-13] MEDS: Apixaban 5 MG TAB PO SCH (09:56)
[2022-12-13] MEDS: HumaLOG 300 UNITS/3 ML VIAL SC SCH ×2 (09:56→14:32)
[2022-12-13] MEDS: metFORMIN 500 MG TAB PO SCH (09:56)
[2022-12-13] MEDS: Carvedilol 3.125 MG TAB PO SCH (09:57)
[2022-12-13] MEDS: Insulin Glargine 30 UNITS/0.3 ML VIAL SC SCH (09:57)
[2022-12-13 13:03] VITALS: BP 155/69; TEMP 99.5
[2022-12-14] MEDS ORDERED: Ferrous Sulfate 325 MG TAB PO SCH (08:00)
== END 2022-12-13 13:29 | disposition home or self-care (01) ==
LOC: SDC 05:48 → 2SW 14:40
PROVIDERS: ADMIT Internal Medicine Cardiovascular Disease; ATTEND Internal Medicine Cardiovascular Disease
PROC: B244ZZ3 Ultrasonography of Right Heart, Intravascular (ICD-10-PCS; principal; 2022-12-12)
PROC: 02583ZZ Destruction of Conduction Mechanism, Percutaneous Approach (ICD-10-PCS; 2022-12-12)
PROC: 4A023FZ Measurement of Cardiac Rhythm, Percutaneous Approach (ICD-10-PCS; 2022-12-12)
PROC: 4A0234Z Measurement of Cardiac Electrical Activity, Percutaneous Approach (ICD-10-PCS; 2022-12-12)
PROC: 02K83ZZ Map Conduction Mechanism, Percutaneous Approach (ICD-10-PCS; 2022-12-12)
DX: I48.0 Paroxysmal atrial fibrillation (principal); I48.92 Unspecified atrial flutter; I47.20 Ventricular tachycardia, unspecified; I25.10 Atherosclerotic heart disease of native coronary artery without angina pectoris; I11.9 Hypertensive heart disease without heart failure; E11.9 Type 2 diabetes mellitus without complications; E78.5 Hyperlipidemia, unspecified; E07.9 Disorder of thyroid, unspecified; Z79.01 Long term (current) use of anticoagulants; Z79.02 Long term (current) use of antithrombotics/antiplatelets; Z79.4 Long term (current) use of insulin; Z79.84 Long term (current) use of oral hypoglycemic drugs; Z79.890 Hormone replacement therapy; Z79.899 Other long term (current) drug therapy; Z91.041 Radiographic dye allergy status; Z95.5 Presence of coronary angioplasty implant and graft; Z89.612 Acquired absence of left leg above knee
CPT/HCPCS: 80048; 82962 ×2; 83735; 85025; 85347 ×2; 93005 ×2; 93622; 93623; 93655; 93656; J3010; 36415; 36416; 93010; 96374; C1732; C1759; C1760; C1884; C1894; G0378; J0282; J1100; J1644; J1815; J1940; J2405; J2704; J2720

== ENCOUNTER 2023-01-27 12:47 | Inpatient (IN) | payer OTHER ==
[~2023-01-27 12:47] MED LIST: Iopamidol-370 76% 500 ML MDV (1 ML CHARGE) ONE
[2023-01-27 13:29] LABS: #Lymphocytes 1.4 thou/uL (1.20-3.40); #Monocytes 0.9 thou/uL (0.11-0.59); #Neutrophils 12.3 thou/uL (1.40-6.50); %Basophils 0.2 % (0.0-1.0); %Eosinophils 0.2 % (0.0-10.0); %Lymphocytes 9.3 % (21.0-51.0); %Monocytes 5.9 % (0.0-10.0); %Neutrophils 84.5 % (42.0-75.0); Hemoglobin 5.9 g/dL (14.0-18.0); Mean Corpuscular HGB CONC 31.7 g/dL (32.0-36.0); Mean Corpuscular Hemoglobin 25.3 pg (27.0-31.0); Mean Corpuscular Volume 79.7 fl (78.0-98.0); Mean Platelet Volume 8.4 fL (7.4-10.4); Platelet Count 322 10x3/uL (130-400); RBC Distribution Width 15.7 % (11.5-14.5); Red Blood Cell (RBC) Count 2.34 mill/uL (4.70-6.10); White Blood Cell (WBC) Count 14.6 10x3/uL (4.8-10.8)
[2023-01-27 13:46] LABS: ALT (SGPT) 9 U/L (8-55); AST (SGOT) 15 U/L (5-34); Albumin 3.9 g/dL (3.4-4.8); Alkaline Phosphatase 42 U/L (40-110); Anion Gap 19 mmol/L (10-20); BUN (Urea Nitrogen) 28 mg/dL (8.4-25.7); Bilirubin, Total 0.4 mg/dL (0.2-1.2); Calc. Creatinine Clearance 0 mL/min (70-130); Calcium 8.4 mg/dL (7.8-10.44); Carbon Dioxide 19 mmol/L (23-31); Chloride 101 mmol/L (98-107); Estimated GFR 55; Globulin 2.1 g/dL (2.4-3.5); Glucose 170 mg/dL (80-115); Lipase 8 U/L (8-78); Potassium 3.6 mmol/L (3.5-5.1); Sodium 135 mmol/L (136-145)
[2023-01-27] MEDS ORDERED: Ondansetron PF 4 MG/2 ML Vial ONE (13:48)
[2023-01-27 15:14] LABS: Bilirubin Negative (Negative); Blood, Urine Negative (Negative); Clarity Clear (Clear); Glucose, Urine (Dipstick) Greater than 1000 mg/dL (Negative); Ketone, Urine Trace mg/dL (Negative); Leukocyte Negative Leu/uL (Negative); Nitrite Negative (Negative); Protein, Urine (Dipstick) Negative (Neg-Trace); Specific Gravity, Urine 1.026 (1.002-1.036); Urobilinogen Normal mg/dL (Less than 2)
[2023-01-27] MEDS ORDERED: Dextrose 5% in Water 1,000 ML IV PRN (19:24)
[2023-01-27] MEDS ORDERED: Ondansetron PF 4 MG/2 ML Vial IVP PRN (19:24)
[2023-01-27] MEDS ORDERED: Dextrose 50% Abboject 50 ML SYRINGE SLOW IVP PRN (19:24)
[2023-01-27] MEDS ORDERED: Acetaminophen 650 MG Suppository PR PRN (19:24)
[2023-01-27] MEDS ORDERED: Lactated Ringer's 1,000 ML IV SCH (19:30)
[2023-01-27 20:39] LABS: INR-International Normal Ratio 1.8; PTT 26.6 sec (22.9-36.1); Prothrombin Time 21.2 sec (12.0-14.7)
[2023-01-27 20:40] LABS: SARS-CoV-2 NAA Rapid Test Not Detected (NotDetected)
[2023-01-27 21:21] LABS: CKMB 8.1 ng/mL (0-6.6)
[2023-01-27] MEDS: Rosuvastatin 20 MG TAB PO SCH (21:38)
[2023-01-27] MEDS: Carvedilol 3.125 MG TAB PO SCH (21:39)
[2023-01-27] MEDS: Pantoprazole 40 MG VIAL IVP SCH (21:39)
[2023-01-27 23:09] VITALS: BMI 27.2
[2023-01-27] MEDS: Dextrose 5%-Lactated Ringers 1,000 ML IV SCH (23:26)
[2023-01-27 23:35] LABS: Hemoglobin 8.4 g/dL (14.0-18.0)
[2023-01-28 00:23] LABS: CKMB 7.1 ng/mL (0-6.6)
[2023-01-28 05:14] LABS: #Basophils 0.1 thou/uL (0.0-0.2); #Eosinphils 0.1 thou/uL (0.0-0.7); #Lymphocytes 1.9 thou/uL (1.20-3.40); #Monocytes 1.1 thou/uL (0.11-0.59); #Neutrophils 8.6 thou/uL (1.40-6.50); %Basophils 0.8 % (0.0-1.0); %Eosinophils 0.8 % (0.0-10.0); %Monocytes 9.5 % (0.0-10.0); Hemoglobin 7.3 g/dL (14.0-18.0); Mean Corpuscular HGB CONC 33.2 g/dL (32.0-36.0); Mean Corpuscular Volume 81.3 fl (78.0-98.0); Mean Platelet Volume 8.8 fL (7.4-10.4); Platelet Count 227 10x3/uL (130-400); RBC Distribution Width 15.9 % (11.5-14.5); Red Blood Cell (RBC) Count 2.68 mill/uL (4.70-6.10); White Blood Cell (WBC) Count 11.8 10x3/uL (4.8-10.8)
[2023-01-28 05:48] LABS: ALT (SGPT) 12 U/L (8-55); AST (SGOT) 31 U/L (5-34); Albumin 3.6 g/dL (3.4-4.8); Alkaline Phosphatase 37 U/L (40-110); Anion Gap 15 mmol/L (10-20); BUN (Urea Nitrogen) 23 mg/dL (8.4-25.7); Bilirubin, Total 0.8 mg/dL (0.2-1.2); Calc. Creatinine Clearance 71 mL/min (70-130); Calcium 7.9 mg/dL (7.8-10.44); Carbon Dioxide 20 mmol/L (23-31); Chloride 105 mmol/L (98-107); Estimated GFR 66; Glucose 154 mg/dL (80-115); Potassium 3.6 mmol/L (3.5-5.1); Protein, Total 5.6 g/dL (5.8-8.1); Sodium 136 mmol/L (136-145)
[2023-01-28 06:04] LABS: CKMB 7.9 ng/mL (0-6.6)
[2023-01-28] MEDS ORDERED: Lactated Ringer's 1,000 ML IV SCH (07:45)
[2023-01-28] MEDS ORDERED: Ferrous Sulfate 325 MG TAB PO SCH (08:00)
[2023-01-28] MEDS: Dextrose 5%-Lactated Ringers 1,000 ML IV SCH (08:16)
[2023-01-28 08:54] LABS: Critical Call Chem Troponin I RESULT DECREASING
[2023-01-28] MEDS: Dronedarone HCl 400 MG TAB PO SCH ×2 (08:59→17:43)
[2023-01-28 09:13] LABS: CKMB 7.3 ng/mL (0-6.6)
[2023-01-28] MEDS: Carvedilol 3.125 MG TAB PO SCH ×2 (09:43→19:49)
[2023-01-28] MEDS: Docusate Sodium 100 MG/10 ML UDCUP PO SCH (09:43)
[2023-01-28] MEDS: Pantoprazole 40 MG VIAL IVP SCH ×2 (09:43→19:50)
[2023-01-28] MEDS ORDERED: GoLYTELY 4,000 ml Bottle PO SCH (10:45)
[2023-01-28] MEDS: Lactated Ringer's 1,000 ML IV SCH ×2 (11:39→19:55)
[2023-01-28] MEDS: Rosuvastatin 20 MG TAB PO SCH (19:49)
[2023-01-29 05:12] LABS: #Basophils 0.1 thou/uL (0.0-0.2); #Lymphocytes 1.3 thou/uL (1.20-3.40); #Monocytes 1.3 thou/uL (0.11-0.59); #Neutrophils 12.1 thou/uL (1.40-6.50); %Eosinophils 0.2 % (0.0-10.0); %Lymphocytes 8.6 % (21.0-51.0); %Monocytes 8.7 % (0.0-10.0); %Neutrophils 81.5 % (42.0-75.0); Hemoglobin 6.6 g/dL (14.0-18.0); Mean Corpuscular HGB CONC 32.1 g/dL (32.0-36.0); Mean Corpuscular Hemoglobin 26.3 pg (27.0-31.0); Mean Platelet Volume 8.7 fL (7.4-10.4); Platelet Count 224 10x3/uL (130-400); RBC Distribution Width 16.7 % (11.5-14.5); Red Blood Cell (RBC) Count 2.51 mill/uL (4.70-6.10); White Blood Cell (WBC) Count 14.8 10x3/uL (4.8-10.8)
[2023-01-29 05:37] LABS: ALT (SGPT) 12 U/L (8-55); AST (SGOT) 27 U/L (5-34); Albumin 3.4 g/dL (3.4-4.8); Alkaline Phosphatase 44 U/L (40-110); Anion Gap 19 mmol/L (10-20); BUN (Urea Nitrogen) 17 mg/dL (8.4-25.7); Bilirubin, Total 0.5 mg/dL (0.2-1.2); Calc. Creatinine Clearance 87 mL/min (70-130); Calcium 7.8 mg/dL (7.8-10.44); Carbon Dioxide 21 mmol/L (23-31); Chloride 102 mmol/L (98-107); Estimated GFR 85; Glucose 126 mg/dL (80-115); Protein, Total 5.4 g/dL (5.8-8.1); Sodium 139 mmol/L (136-145)
[2023-01-29] MEDS ORDERED: Potassium Chloride 20 MEQ in Premix Bag 1 BAG IVPB SCH (07:30)
[2023-01-29] MEDS: Carvedilol 3.125 MG TAB PO SCH ×2 (08:31→20:26)
[2023-01-29] MEDS ORDERED: Furosemide 20 MG/2 ML VIAL SLOW IVP SCH (08:45)
[2023-01-29] MEDS ORDERED: Esmolol 100 MG/10 ML VIAL ONE ×2 (12:29→13:53)
[2023-01-29] MEDS ORDERED: Lidocaine 1% PF 5 ML VIAL ONE (12:29)
[2023-01-29] MEDS ORDERED: Phenylephrine 10 MG/ML VIAL ONE (12:29)
[2023-01-29] MEDS ORDERED: Metoprolol Tartrate 5 MG/5 ML VIAL ONE (13:47)
[2023-01-29] MEDS ORDERED: Ipratropium/Albuterol 3 ML NEB ONE (13:58)
[2023-01-29] MEDS ORDERED: Furosemide 40 MG/4 ML VIAL ONE ×2 (14:05→14:29)
[2023-01-29 14:12] LABS: Hemoglobin 8.2 g/dL (14.0-18.0); Mean Corpuscular HGB CONC 30.9 g/dL (32.0-36.0); Mean Corpuscular Hemoglobin 26.1 pg (27.0-31.0); Mean Corpuscular Volume 84.6 fl (78.0-98.0); Mean Platelet Volume 8.9 fL (7.4-10.4); Platelet Count 207 10x3/uL (130-400); RBC Distribution Width 17.1 % (11.5-14.5); Red Blood Cell (RBC) Count 3.15 mill/uL (4.70-6.10); White Blood Cell (WBC) Count 17.9 10x3/uL (4.8-10.8)
[2023-01-29] MEDS ORDERED: Furosemide 40 MG/4 ML VIAL SLOW IVP SCH ×2 (14:30→14:45)
[2023-01-29] MEDS ORDERED: Nitroglycerin 2% Ointment 1 INCH/1 GM Packet ONE (14:34)
[2023-01-29] MEDS: Dronedarone HCl 400 MG TAB PO SCH ×2 (15:11→16:04)
[2023-01-29] MEDS: Docusate Sodium 100 MG/10 ML UDCUP PO SCH (15:12)
[2023-01-29] MEDS: Pantoprazole 40 MG VIAL IVP SCH ×2 (15:12→20:27)
[2023-01-29] MEDS ORDERED: Diltiazem HCl 125 MG, Admixture Fee 1 EACH in Sodium Chloride 0.9% 100 ML IVPB SCH (15:15)
[2023-01-29] MEDS ORDERED: Metoprolol Tartrate 5 MG/5 ML VIAL IVP SCH (15:30)
[2023-01-29] MEDS ORDERED: Potassium Chloride 20 MEQ TAB PO SCH (15:30)
[2023-01-29] MEDS ORDERED: Electrolyte Replacement Protocol 1 EACH FS SCH (20:15)
[2023-01-29] MEDS: Rosuvastatin 20 MG TAB PO SCH (20:26)
[2023-01-30] MEDS: Diltiazem 125 MG in Sodium Chloride 0.9% 100 ML IVPB SCH ×2 (03:00→14:51)
[2023-01-30] MEDS: Levothyroxine Sodium 25 MCG TAB PO SCH (05:00)
[2023-01-30] MEDS: Levothyroxine Sodium 112 MCG TAB PO SCH (05:00)
[2023-01-30 06:44] LABS: #Eosinphils 0.2 thou/uL (0.0-0.7); #Lymphocytes 1.4 thou/uL (1.20-3.40); #Monocytes 1.2 thou/uL (0.11-0.59); #Neutrophils 12.5 thou/uL (1.40-6.50); %Eosinophils 1.2 % (0.0-10.0); %Lymphocytes 9.2 % (21.0-51.0); %Monocytes 7.8 % (0.0-10.0); %Neutrophils 81.8 % (42.0-75.0); Hemoglobin 8.4 g/dL (14.0-18.0); Mean Corpuscular HGB CONC 32.1 g/dL (32.0-36.0); Mean Corpuscular Hemoglobin 27.2 pg (27.0-31.0); Mean Corpuscular Volume 84.5 fl (78.0-98.0); Mean Platelet Volume 8.7 fL (7.4-10.4); Platelet Count 194 10x3/uL (130-400); RBC Distribution Width 17.2 % (11.5-14.5); Red Blood Cell (RBC) Count 3.08 mill/uL (4.70-6.10); White Blood Cell (WBC) Count 15.3 10x3/uL (4.8-10.8)
[2023-01-30 06:53] LABS: Anion Gap 16 mmol/L (10-20); BUN (Urea Nitrogen) 14 mg/dL (8.4-25.7); Calc. Creatinine Clearance 90 mL/min (70-130); Calcium 7.7 mg/dL (7.8-10.44); Carbon Dioxide 23 mmol/L (23-31); Chloride 100 mmol/L (98-107); Estimated GFR 91; Glucose 140 mg/dL (80-115); Potassium 2.8 mmol/L (3.5-5.1); Sodium 136 mmol/L (136-145)
[2023-01-30] MEDS ORDERED: Non-Formulary Item 1 EACH (Sildenafil Citrate [Sildenafil Citrate] 50 MG Tablet) PO SCH (09:00)
[2023-01-30] MEDS: Dronedarone HCl 400 MG TAB PO SCH ×2 (09:23→23:55)
[2023-01-30] MEDS: Carvedilol 3.125 MG TAB PO SCH ×2 (09:24→20:11)
[2023-01-30] MEDS: Clopidogrel Bisulfate 75 MG TAB PO SCH (09:24)
[2023-01-30] MEDS: Losartan 25 MG TAB PO SCH (09:24)
[2023-01-30] MEDS: Chlorthalidone 25 MG TAB PO SCH (09:25)
[2023-01-30] MEDS: Potassium Chloride 20 MEQ TAB PO SCH ×2 (09:25→13:40)
[2023-01-30] MEDS: Pantoprazole 40 MG VIAL IVP SCH ×2 (09:27→20:11)
[2023-01-30] MEDS: Docusate Sodium 100 MG/10 ML UDCUP PO SCH (09:40)
[2023-01-30] MEDS: HumaLOG 300 UNITS/3 ML VIAL SC PRN ×2 (13:40→20:29)
[2023-01-30] MEDS: Amiodarone 450 MG, Admixture Fee 1 EACH in Dextrose 5% in Water 250 ML IVPB SCH (18:16)
[2023-01-30] MEDS: Rosuvastatin 20 MG TAB PO SCH (20:11)
[2023-01-31] MEDS: Amiodarone 450 MG, Admixture Fee 1 EACH in Dextrose 5% in Water 250 ML IVPB SCH ×2 (01:56→17:38)
[2023-01-31] MEDS: Levothyroxine Sodium 112 MCG TAB PO SCH (04:37)
[2023-01-31] MEDS: Levothyroxine Sodium 25 MCG TAB PO SCH (04:37)
[2023-01-31 06:07] LABS: Anion Gap 13 mmol/L (10-20); BUN (Urea Nitrogen) 16 mg/dL (8.4-25.7); Calc. Creatinine Clearance 93 mL/min (70-130); Calcium 7.8 mg/dL (7.8-10.44); Carbon Dioxide 22 mmol/L (23-31); Chloride 99 mmol/L (98-107); Estimated GFR 93; Glucose 202 mg/dL (80-115); Potassium 3.2 mmol/L (3.5-5.1); Sodium 131 mmol/L (136-145)
[2023-01-31 06:33] LABS: Anisocytosis SLIGHT = 6-15 cells (100X) (0-5/hpf); Band 1 % (5-11); Burr Cells SLIGHT = 2-5 cells (100X) (0-1/hpf); Hemoglobin 8.3 g/dL (14.0-18.0); Hypochromia SLIGHT = 6-15 cells (100X) (0-5/hpf); Lymphocytes 7 % (21-51); MDiff Complete? YES; Mean Corpuscular Hemoglobin 40.3 pg (27.0-31.0); Mean Corpuscular Volume 70.8 fl (78.0-98.0); Mean Platelet Volume 7.9 fL (7.4-10.4); Monocytes 5 % (0-10); Neutrophil 85 % (42-75); Nucleated RBC 1 % (0); Platelet Count 304 10x3/uL (130-400); Platelet Morphology Comment Appears Adequate; Polychromasia SLIGHT = 2-3 cells (100X) (0-2/hpf); RBC Distribution Width 36.6 % (11.5-14.5); Red Blood Cell (RBC) Count 2.06 mill/uL (4.70-6.10); Target Cells SLIGHT = 2-5 cells (100X) (0-1/hpf); White Blood Cell (WBC) Count 11.4 10x3/uL (4.8-10.8)
[2023-01-31 06:50] LABS: Mean Corpuscular HGB CONC 31.7 g/dL (32.0-36.0)
[2023-01-31] MEDS ORDERED: Potassium Chloride 20 MEQ TAB PO SCH (08:00)
[2023-01-31] MEDS: Clopidogrel Bisulfate 75 MG TAB PO SCH (08:53)
[2023-01-31] MEDS: Carvedilol 3.125 MG TAB PO SCH ×2 (08:54→20:33)
[2023-01-31] MEDS: Losartan 25 MG TAB PO SCH (08:54)
[2023-01-31] MEDS: Pantoprazole 40 MG VIAL IVP SCH ×2 (08:55→20:33)
[2023-01-31] MEDS: Docusate Sodium 100 MG/10 ML UDCUP PO SCH (08:55)
[2023-01-31] MEDS: Chlorthalidone 25 MG TAB PO SCH (10:47)
[2023-01-31] MEDS: HumaLOG 300 UNITS/3 ML VIAL SC PRN ×2 (11:12→15:39)
[2023-01-31 13:51] LABS: Anion Gap 13 mmol/L (10-20); BUN (Urea Nitrogen) 16 mg/dL (8.4-25.7); Calc. Creatinine Clearance 74 mL/min (70-130); Calcium 8.3 mg/dL (7.8-10.44); Carbon Dioxide 24 mmol/L (23-31); Chloride 99 mmol/L (98-107); Estimated GFR 71; Glucose 317 mg/dL (80-115); Potassium 3.7 mmol/L (3.5-5.1); Sodium 132 mmol/L (136-145)
[2023-01-31] MEDS ORDERED: Insulin Glargine 30 UNITS/0.3 ML VIAL SC SCH (14:30)
[2023-01-31] MEDS: Diltiazem 125 MG in Sodium Chloride 0.9% 100 ML IVPB SCH (15:56)
[2023-01-31] MEDS: Rosuvastatin 20 MG TAB PO SCH (20:33)
[2023-01-31 23:18] LABS: Glucose 319 mg/dL (80-115)
[2023-02-01] MEDS ORDERED: hydrOXYzine 25 MG TAB PO SCH (00:15)
[2023-02-01 03:54] LABS: Anion Gap 13 mmol/L (10-20); BUN (Urea Nitrogen) 16 mg/dL (8.4-25.7); Calc. Creatinine Clearance 75 mL/min (70-130); Calcium 7.9 mg/dL (7.8-10.44); Carbon Dioxide 24 mmol/L (23-31); Chloride 101 mmol/L (98-107); Estimated GFR 72; Glucose 266 mg/dL (80-115); Potassium 3.5 mmol/L (3.5-5.1); Sodium 134 mmol/L (136-145)
[2023-02-01 04:23] LABS: Band 2 % (5-11); Eosinophils 2 % (0-10); Hemoglobin 7.2 g/dL (14.0-18.0); Hypochromia SLIGHT = 6-15 cells (100X) (0-5/hpf); Lymphocytes 13 % (21-51); MDiff Complete? YES; Mean Corpuscular HGB CONC 28.8 g/dL (32.0-36.0); Mean Corpuscular Hemoglobin 23.9 pg (27.0-31.0); Mean Corpuscular Volume 82.8 fl (78.0-98.0); Mean Platelet Volume 9.4 fL (7.4-10.4); Monocytes 5 % (0-10); Neutrophil 78 % (42-75); Nucleated RBC 5 % (0); Platelet Count 193 10x3/uL (130-400); Polychromasia SLIGHT = 2-3 cells (100X) (0-2/hpf); RBC Distribution Width 17.8 % (11.5-14.5); Red Blood Cell (RBC) Count 3.03 mill/uL (4.70-6.10); White Blood Cell (WBC) Count 10.4 10x3/uL (4.8-10.8)
[2023-02-01] MEDS: Levothyroxine Sodium 25 MCG TAB PO SCH (06:04)
[2023-02-01] MEDS: Levothyroxine Sodium 112 MCG TAB PO SCH (06:04)
[2023-02-01] MEDS: Diltiazem 125 MG in Sodium Chloride 0.9% 100 ML IVPB SCH (06:08)
[2023-02-01] MEDS ORDERED: Potassium Chloride 20 MEQ TAB PO SCH (08:00)
[2023-02-01] MEDS: Amiodarone 450 MG, Admixture Fee 1 EACH in Dextrose 5% in Water 250 ML IVPB SCH (08:41)
[2023-02-01] MEDS: Pantoprazole 40 MG VIAL IVP SCH ×2 (08:42→20:24)
[2023-02-01] MEDS: Losartan 25 MG TAB PO SCH (08:43)
[2023-02-01] MEDS: Carvedilol 3.125 MG TAB PO SCH ×2 (08:43→20:24)
[2023-02-01] MEDS: Docusate Sodium 100 MG/10 ML UDCUP PO SCH (08:44)
[2023-02-01] MEDS: Chlorthalidone 25 MG TAB PO SCH (08:45)
[2023-02-01] MEDS ORDERED: Ferrous Sulfate 325 MG TAB PO SCH (09:00)
[2023-02-01] MEDS: Polyethylene Glycol 3350 17 GM Packet PO SCH (09:11)
[2023-02-01] MEDS: metFORMIN 500 MG TAB PO SCH ×2 (09:23→17:31)
[2023-02-01] MEDS: Empagliflozin 25 MG TAB PO SCH (09:23)
[2023-02-01 09:28] LABS: Glucose 267 mg/dL (80-115)
[2023-02-01] MEDS: Insulin Glargine 30 UNITS/0.3 ML VIAL SC SCH (09:36)
[2023-02-01] MEDS: HumaLOG 300 UNITS/3 ML VIAL SC PRN ×4 (09:37→21:47)
[2023-02-01 09:43] LABS: Hemoglobin 9.1 g/dL (14.0-18.0); Mean Corpuscular HGB CONC 32.6 g/dL (32.0-36.0); Mean Corpuscular Hemoglobin 26.5 pg (27.0-31.0); Mean Corpuscular Volume 81.3 fl (78.0-98.0); Mean Platelet Volume 9.4 fL (7.4-10.4); Platelet Count 211 10x3/uL (130-400); RBC Distribution Width 17.9 % (11.5-14.5); Red Blood Cell (RBC) Count 3.42 mill/uL (4.70-6.10); White Blood Cell (WBC) Count 10.4 10x3/uL (4.8-10.8)
[2023-02-01 11:56] LABS: Glucose 366 mg/dL (80-115)
[2023-02-01] MEDS ORDERED: Amiodarone 450 MG, Admixture Fee 1 EACH in Dextrose 5% in Water 250 ML IVPB SCH (16:45)
[2023-02-01] MEDS: Dronedarone HCl 400 MG TAB PO SCH (17:31)
[2023-02-01 17:44] LABS: Glucose 198 mg/dL (80-115)
[2023-02-01] MEDS: Rosuvastatin 20 MG TAB PO SCH (20:26)
[2023-02-01 21:31] LABS: Glucose 251 mg/dL (80-115)
[2023-02-01] MEDS ORDERED: Melatonin 3 MG TAB PO SCH (22:15)
[2023-02-02 04:26] VITALS: TEMP 97.8
[2023-02-02 05:05] LABS: Hemoglobin 8.5 g/dL (14.0-18.0); Mean Corpuscular HGB CONC 32.7 g/dL (32.0-36.0); Mean Corpuscular Hemoglobin 27.1 pg (27.0-31.0); Mean Corpuscular Volume 82.6 fl (78.0-98.0); Mean Platelet Volume 9.6 fL (7.4-10.4); Platelet Count 209 10x3/uL (130-400); Red Blood Cell (RBC) Count 3.13 mill/uL (4.70-6.10); White Blood Cell (WBC) Count 10.8 10x3/uL (4.8-10.8)
[2023-02-02 05:12] LABS: Anion Gap 13 mmol/L (10-20); BUN (Urea Nitrogen) 17 mg/dL (8.4-25.7); Calc. Creatinine Clearance 75 mL/min (70-130); Carbon Dioxide 24 mmol/L (23-31); Chloride 103 mmol/L (98-107); Estimated GFR 75; Glucose 180 mg/dL (80-115); Potassium 4.1 mmol/L (3.5-5.1); Sodium 136 mmol/L (136-145)
[2023-02-02 05:24] LABS: Anisocytosis SLIGHT = 6-15 cells (100X) (0-5/hpf); Eosinophils 5 % (0-10); Lymphocytes 18 % (21-51); MDiff Complete? YES; Monocytes 5 % (0-10); Neutrophil 71 % (42-75); Nucleated RBC 1 % (0); Ovalocytes SLIGHT = 2-5 cells (100X) (0-1/hpf); Platelet Morphology Comment Appears Adequate; Polychromasia MODERATE = 3-4 cells (100X) (0-2/hpf)
[2023-02-02] MEDS: Levothyroxine Sodium 112 MCG TAB PO SCH (06:17)
[2023-02-02] MEDS: Levothyroxine Sodium 25 MCG TAB PO SCH (06:17)
[2023-02-02] MEDS: Losartan 25 MG TAB PO SCH (09:02)
[2023-02-02] MEDS: Docusate Sodium 100 MG/10 ML UDCUP PO SCH (09:02)
[2023-02-02] MEDS: Insulin Glargine 30 UNITS/0.3 ML VIAL SC SCH (09:02)
[2023-02-02] MEDS: Empagliflozin 25 MG TAB PO SCH (09:02)
[2023-02-02] MEDS: Chlorthalidone 25 MG TAB PO SCH (09:03)
[2023-02-02] MEDS: Carvedilol 3.125 MG TAB PO SCH (09:03)
[2023-02-02] MEDS: Pantoprazole 40 MG VIAL IVP SCH (09:03)
[2023-02-02] MEDS: metFORMIN 500 MG TAB PO SCH (09:03)
[2023-02-02] MEDS: Dronedarone HCl 400 MG TAB PO SCH (09:03)
[2023-02-02] MEDS: Polyethylene Glycol 3350 17 GM Packet PO SCH (09:04)
[2023-02-02 11:47] VITALS: BP 132/64
== END 2023-02-02 11:58 | disposition home or self-care (01) | DRG 377 ==
LOC: ERS 12:47 → 2SW 17:25 → OBSVTOIN 01-28 11:33 → CCU 01-29 14:18 → 2NO 02-01 17:09
PROVIDERS: ADMIT Family Medicine; ATTEND Student in an Organized Health Care Education/Training Program
PROC: 30233N1 Transfusion of Nonautologous Red Blood Cells into Peripheral Vein, Percutaneous Approach (ICD-10-PCS; 2023-01-27)
PROC: 0W3P8ZZ Control Bleeding in Gastrointestinal Tract, Via Natural or Artificial Opening Endoscopic (ICD-10-PCS; principal; 2023-01-29)
PROC: 0W3P8ZZ Control Bleeding in Gastrointestinal Tract, Via Natural or Artificial Opening Endoscopic (ICD-10-PCS; 2023-01-29)
DX: K55.21 Angiodysplasia of colon with hemorrhage (principal); I21.A1 Myocardial infarction type 2; J96.01 Acute respiratory failure with hypoxia; I50.33 Acute on chronic diastolic (congestive) heart failure; I48.92 Unspecified atrial flutter; D62 Acute posthemorrhagic anemia; N17.9 Acute kidney failure, unspecified; K31.811 Angiodysplasia of stomach and duodenum with bleeding; Z20.822 Contact with and (suspected) exposure to COVID-19; K44.9 Diaphragmatic hernia without obstruction or gangrene; K57.30 Diverticulosis of large intestine without perforation or abscess without bleeding; K64.8 Other hemorrhoids; I25.10 Atherosclerotic heart disease of native coronary artery without angina pectoris; E03.9 Hypothyroidism, unspecified; I11.0 Hypertensive heart disease with heart failure; I35.0 Nonrheumatic aortic (valve) stenosis; E11.51 Type 2 diabetes mellitus with diabetic peripheral angiopathy without gangrene; I48.0 Paroxysmal atrial fibrillation; K21.9 Gastro-esophageal reflux disease without esophagitis; K59.00 Constipation, unspecified; Z79.01 Long term (current) use of anticoagulants; Z95.2 Presence of prosthetic heart valve; Z91.041 Radiographic dye allergy status; Z79.4 Long term (current) use of insulin; Z79.84 Long term (current) use of oral hypoglycemic drugs; Z79.890 Hormone replacement therapy; Z79.02 Long term (current) use of antithrombotics/antiplatelets; Z89.612 Acquired absence of left leg above knee
CPT/HCPCS: 36415; 36416; 36430; 71045; 74177; 80048; 80053; 81003; 82553; 83690; 83880; 84484; 85025; 85610; 85730; 86850; 86900; 86901; 93005; 93010; 94760; 96361; 96375; 96376; C9113; G0378; J0282; J1815; J1940; J2370; J2405; J3490; J7070; J7120; J7620; P9016; Q9967; U0002

== ENCOUNTER 2023-03-26 12:01 | Day surgery (SDC) | payer OTHER ==
[2023-03-25 09:50] VITALS: BMI 27.3
[2023-03-26 13:13] LABS: #Basophils 0.1 thou/uL (0.0-0.2); #Eosinphils 0.2 thou/uL (0.0-0.7); #Monocytes 0.8 thou/uL (0.11-0.59); #Neutrophils 5.3 thou/uL (1.40-6.50); %Basophils 1.7 % (0.0-1.0); %Lymphocytes 21.2 % (21.0-51.0); %Monocytes 9.6 % (0.0-10.0); %Neutrophils 65.3 % (42.0-75.0); Hemoglobin 9.5 g/dL (14.0-18.0); Mean Corpuscular HGB CONC 27.7 g/dL (32.0-36.0); Mean Corpuscular Hemoglobin 18.2 pg (27.0-31.0); Mean Corpuscular Volume 65.8 fl (78.0-98.0); Mean Platelet Volume 9.5 fL (7.4-10.4); Platelet Count 444 10x3/uL (130-400); RBC Distribution Width 22.7 % (11.5-14.5); Red Blood Cell (RBC) Count 5.21 mill/uL (4.70-6.10); White Blood Cell (WBC) Count 8.2 10x3/uL (4.8-10.8)
[2023-03-26 13:45] LABS: Anion Gap 14 mmol/L (10-20); BUN (Urea Nitrogen) 15 mg/dL (8.4-25.7); Calc. Creatinine Clearance 84 mL/min (70-130); Calcium 9.3 mg/dL (7.8-10.44); Carbon Dioxide 24 mmol/L (23-31); Chloride 103 mmol/L (98-107); Estimated GFR 81; Glucose 131 mg/dL (83-110); Potassium 3.6 mmol/L (3.5-5.1); Sodium 137 mmol/L (136-145)
[2023-03-26 13:46] LABS: Anisocytosis SLIGHT = 6-15 cells HPF (0-5); CellaVision Operator ID LAB.MJL; Elliptocytes SLIGHT = 2-5 cells HPF (0-1); Hypochromia MODERATE=16-30 cells HPF (0-5); Microcytosis SLIGHT = 6-15 cells HPF (0-5); Ovalocytes SLIGHT = 2-5 cells HPF (0-1); Platelet Adequacy Comment Platelets Increased; Poikilocytosis SLIGHT = 6-15 cells HPF (0-5); Polychromasia MODERATE = 3-4 cells HPF (0-2); Spherocytes SLIGHT = 1-5 cells HPF (None Seen); Target Cells SLIGHT = 2-5 cells HPF (0-1)
[2023-03-26] MEDS ORDERED: PROPOFOL 200 MG/20 ML VIAL ONE (15:04)
[2023-03-26] MEDS ORDERED: Lidocaine 1% PF 5 ML VIAL ONE (15:04)
== END 2023-03-26 16:05 | disposition home or self-care (01) ==
LOC: SDC 12:01
PROVIDERS: ATTEND Internal Medicine Cardiovascular Disease
DX: I48.0 Paroxysmal atrial fibrillation (principal); I48.92 Unspecified atrial flutter; I10 Essential (primary) hypertension; I73.9 Peripheral vascular disease, unspecified; K92.2 Gastrointestinal hemorrhage, unspecified; I25.10 Atherosclerotic heart disease of native coronary artery without angina pectoris; E03.9 Hypothyroidism, unspecified; I35.1 Nonrheumatic aortic (valve) insufficiency; E78.5 Hyperlipidemia, unspecified; K21.9 Gastro-esophageal reflux disease without esophagitis; E11.9 Type 2 diabetes mellitus without complications; D64.9 Anemia, unspecified; Z87.891 Personal history of nicotine dependence; Z79.84 Long term (current) use of oral hypoglycemic drugs; Z79.01 Long term (current) use of anticoagulants; Z79.899 Other long term (current) drug therapy; Z79.890 Hormone replacement therapy; Z79.4 Long term (current) use of insulin; Z79.02 Long term (current) use of antithrombotics/antiplatelets; Z91.041 Radiographic dye allergy status
CPT/HCPCS: 80048; 85025; 92960; 93005; 93010; 93312; J2704

== ENCOUNTER 2023-05-29 12:15 | Emergency (ER) | payer OTHER ==
[2023-05-29] MEDS ORDERED: Morphine 4 MG/ML VIAL ONE (13:21)
[2023-05-29] MEDS ORDERED: Orphenadrine Citrate 60 MG/2 ML VIAL ONE (13:42)
[2023-05-29] MEDS ORDERED: Acetaminophen 500 MG TAB ONE (14:32)
== END 2023-05-29 15:55 | disposition home or self-care (01) ==
LOC: ERS 12:15
DX: M79.605 Pain in left leg (principal); M62.838 Other muscle spasm; E11.9 Type 2 diabetes mellitus without complications; I10 Essential (primary) hypertension
CPT/HCPCS: 96372; J2270; J2360

== ENCOUNTER 2023-08-07 06:24 | Observation (INO) | payer OTHER ==
[2023-08-07] MEDS ORDERED: Protamine Sulfate 50 MG/5 ML VIAL ONE (06:55)
[2023-08-07] MEDS ORDERED: Heparin 25,000 units/D5W 500 ML ONE (06:55)
[2023-08-07] MEDS ORDERED: Isoproterenol 0.2 MG/1 ML AMP ONE (06:55)
[2023-08-07 06:58] LABS: #Basophils 0.1 thou/uL (0.0-0.2); #Eosinphils 0.3 thou/uL (0.0-0.7); #Monocytes 0.8 thou/uL (0.11-0.59); #Neutrophils 7.4 thou/uL (1.40-6.50); %Basophils 1.4 % (0.0-1.0); %Lymphocytes 15.5 % (21.0-51.0); %Monocytes 7.9 % (0.0-10.0); %Neutrophils 71.9 % (42.0-75.0); Hematocrit 39.3 % (42.0-52.0); Mean Corpuscular Hemoglobin 18.4 pg (27.0-31.0); Mean Corpuscular Volume 65.8 fl (78.0-98.0); Mean Platelet Volume 9.3 fL (7.4-10.4); Platelet Count 437 10x3/uL (130-400); RBC Distribution Width 22.9 % (11.5-14.5); Red Blood Cell (RBC) Count 5.97 mill/uL (4.70-6.10); White Blood Cell (WBC) Count 10.3 10x3/uL (4.8-10.8)
[2023-08-07 07:02] LABS: INR-International Normal Ratio 1.3; PTT 33.7 sec (22.9-36.1); Prothrombin Time 16.9 sec (12.0-14.7)
[2023-08-07] MEDS ORDERED: Heparin 10,000 UNITS/ 10 ML VIAL ONE (07:10)
[2023-08-07 07:15] LABS: ALT (SGPT) 10 U/L (8-55); AST (SGOT) 11 U/L (5-34); Albumin 4.7 g/dL (3.4-4.8); Alkaline Phosphatase 62 U/L (40-110); Anion Gap 13 mmol/L (10-20); BUN (Urea Nitrogen) 17 mg/dL (8.4-25.7); Bilirubin, Total 0.3 mg/dL (0.2-1.2); Calc. Creatinine Clearance 80 mL/min (70-130); Calcium 9.2 mg/dL (7.8-10.44); Carbon Dioxide 22 mmol/L (23-31); Chloride 101 mmol/L (98-107); Estimated GFR 80; Globulin 2.3 g/dL (2.4-3.5); Glucose 161 mg/dL (83-110); Potassium 3.7 mmol/L (3.5-5.1); Sodium 132 mmol/L (136-145)
[2023-08-07 07:40] LABS: Burr Cells SLIGHT = 2-5 cells HPF (0-1); CellaVision Operator ID LAB.GE; Elliptocytes SLIGHT = 2-5 cells HPF (0-1); Hypochromia SLIGHT = 6-15 cells HPF (0-5); Large Platelets 6.1 % (0-5); Microcytosis MODERATE=15-30 cells HPF (0-5); Ovalocytes SLIGHT = 2-5 cells HPF (0-1); Platelet Adequacy Comment Platelets Increased; Polychromasia MODERATE = 3-4 cells HPF (0-2)
[2023-08-07] MEDS ORDERED: fentaNYL 50 mcg/mL 1 mL Vial ONE ×2 (09:38→12:36)
[2023-08-07] MEDS ORDERED: Famotidine/PF 20 mg/2ml Vial ONE (09:39)
[2023-08-07] MEDS ORDERED: SUGAMMADEX SODIUM 200 MG/2 ML VIAL ONE (09:39)
[2023-08-07] MEDS ORDERED: Vasopressin 20 UNITS/ML VIAL ONE (09:39)
[2023-08-07] MEDS ORDERED: Rocuronium Bromide 10 MG/ML (10ML VIAL) ONE (09:52)
[2023-08-07] MEDS ORDERED: Ondansetron PF 4 MG/2 ML Vial ONE ×2 (09:52→16:37)
[2023-08-07] MEDS ORDERED: PHENYLEPHRINE-NS 100 MCG/ML 10 ML SYRINGE ONE (09:52)
[2023-08-07] MEDS ORDERED: PROPOFOL 200 MG/20 ML VIAL ONE (09:52)
[2023-08-07] MEDS ORDERED: Lidocaine 1% PF 5 ML VIAL ONE (09:52)
[2023-08-07] MEDS ORDERED: Amiodarone 150 MG, Admixture Fee 1 EACH in Dextrose 5% in Water 100 ML IVPB SCH (16:45)
[2023-08-07] MEDS ORDERED: Furosemide 40 MG/4 ML VIAL ONE (16:52)
[2023-08-07] MEDS ORDERED: Furosemide 20 MG/2 ML VIAL ONE (16:52)
[2023-08-07] MEDS ORDERED: Dronedarone HCl 400 MG TAB PO SCH (17:00)
[2023-08-07] MEDS: Amiodarone 450 MG, Admixture Fee 1 EACH in Dextrose 5% in Water 250 ML IVPB SCH (17:50)
[2023-08-07] MEDS: HumaLOG 300 UNITS/3 ML VIAL SC SCH (18:33)
[2023-08-07] MEDS: metFORMIN 500 MG TAB PO SCH (18:33)
[2023-08-07] MEDS: Apixaban 5 MG TAB PO SCH (20:56)
[2023-08-07] MEDS: Carvedilol 3.125 MG TAB PO SCH (20:56)
[2023-08-07] MEDS: Colchicine 0.6 MG TAB PO SCH (20:56)
[2023-08-07] MEDS: Furosemide 40 MG/4 ML VIAL SLOW IVP SCH (20:57)
[2023-08-07] MEDS: Ranolazine 500 MG ER.TAB PO SCH (20:57)
[2023-08-07] MEDS ORDERED: Rosuvastatin 20 MG TAB PO SCH (21:00)
[2023-08-07] MEDS ORDERED: Insulin Glargine 30 UNITS/0.3 ML VIAL SC SCH (21:00)
[2023-08-07 23:43] VITALS: BMI 26.4
[2023-08-08] MEDS: Amiodarone 450 MG, Admixture Fee 1 EACH in Dextrose 5% in Water 250 ML IVPB SCH (02:40)
[2023-08-08 04:46] LABS: #Basophils 0.1 thou/uL (0.0-0.2); #Eosinphils 0.1 thou/uL (0.0-0.7); #Monocytes 1.5 thou/uL (0.11-0.59); #Neutrophils 14.4 thou/uL (1.40-6.50); %Basophils 0.8 % (0.0-1.0); %Eosinophils 0.6 % (0.0-10.0); %Lymphocytes 8.4 % (21.0-51.0); %Monocytes 8.4 % (0.0-10.0); %Neutrophils 81.3 % (42.0-75.0); Hematocrit 38.6 % (42.0-52.0); Hemoglobin 11.1 g/dL (14.0-18.0); Mean Corpuscular HGB CONC 28.8 g/dL (32.0-36.0); Mean Corpuscular Hemoglobin 18.8 pg (27.0-31.0); Mean Corpuscular Volume 65.2 fl (78.0-98.0); Mean Platelet Volume 9.3 fL (7.4-10.4); Platelet Count 418 10x3/uL (130-400); RBC Distribution Width 22.4 % (11.5-14.5); Red Blood Cell (RBC) Count 5.92 mill/uL (4.70-6.10); White Blood Cell (WBC) Count 17.7 10x3/uL (4.8-10.8)
[2023-08-08 05:12] LABS: Anion Gap 15 mmol/L (10-20); BUN (Urea Nitrogen) 18 mg/dL (8.4-25.7); Calc. Creatinine Clearance 78 mL/min (70-130); Calcium 8.6 mg/dL (7.8-10.44); Carbon Dioxide 25 mmol/L (23-31); Chloride 100 mmol/L (98-107); Estimated GFR 78; Glucose 165 mg/dL (83-110); Potassium 2.9 mmol/L (3.5-5.1); Sodium 137 mmol/L (136-145)
[2023-08-08] MEDS ORDERED: Levothyroxine Sodium 112 MCG TAB PO SCH (06:00)
[2023-08-08] MEDS ORDERED: Levothyroxine Sodium 25 MCG TAB PO SCH (06:00)
[2023-08-08] MEDS ORDERED: Ketorolac Tromethamine 30 MG/ML VIAL IVP SCH ×2 (08:45→12:00)
[2023-08-08] MEDS ORDERED: Electrolyte Replacement Protocol FS PRN (08:45)
[2023-08-08] MEDS ORDERED: Empagliflozin 25 MG TAB PO SCH (09:00)
[2023-08-08] MEDS ORDERED: Metamucil PACK PO SCH (09:00)
[2023-08-08] MEDS ORDERED: Losartan 25 MG TAB PO SCH (09:00)
[2023-08-08] MEDS ORDERED: Insulin Glargine 30 UNITS/0.3 ML VIAL SC SCH (09:00)
[2023-08-08] MEDS ORDERED: Clopidogrel Bisulfate 75 MG TAB PO SCH (09:00)
[2023-08-08] MEDS ORDERED: Chlorthalidone 25 MG TAB PO SCH (09:00)
[2023-08-08] MEDS ORDERED: Docusate Sodium 100 MG/10 ML UDCUP PO SCH ×2 (09:00→21:00)
[2023-08-08 09:29] VITALS: TEMP 98.1
[2023-08-08] MEDS: Furosemide 40 MG/4 ML VIAL SLOW IVP SCH (09:30)
[2023-08-08] MEDS: HumaLOG 300 UNITS/3 ML VIAL SC SCH ×2 (09:31→11:48)
[2023-08-08] MEDS: Apixaban 5 MG TAB PO SCH (09:32)
[2023-08-08] MEDS: Colchicine 0.6 MG TAB PO SCH (09:32)
[2023-08-08] MEDS: Potassium Chloride 20 MEQ TAB PO SCH ×2 (09:32→11:49)
[2023-08-08] MEDS: Carvedilol 3.125 MG TAB PO SCH (09:32)
[2023-08-08] MEDS: Ranolazine 500 MG ER.TAB PO SCH (09:33)
[2023-08-08] MEDS: metFORMIN 500 MG TAB PO SCH (09:33)
[2023-08-08 11:47] VITALS: BP 119/58
[2023-08-08] MEDS ORDERED: Amiodarone 200 MG TAB PO SCH ×4 (12:30→21:00)
[2023-08-09] MEDS ORDERED: Ferrous Sulfate 325 MG TAB PO SCH (09:00)
[2023-08-11] MEDS ORDERED: FLU VACC QS2023(65UP)/MF59C/PF 60 MCG/0.5 ML SYRINGE IM ONE (09:00)
== END 2023-08-08 15:21 | disposition home or self-care (01) ==
LOC: SDC 06:24 → 2NO 13:30
PROVIDERS: ADMIT Internal Medicine Cardiovascular Disease; ATTEND Internal Medicine Cardiovascular Disease
PROC: 02B Heart and Great Vessels, Excision (ICD-10-PCS; principal; 2023-08-07)
PROC: 4A0274Z Measurement of Cardiac Electrical Activity, Via Natural or Artificial Opening (ICD-10-PCS; 2023-08-07)
DX: I48.0 Paroxysmal atrial fibrillation (principal); I48.4 Atypical atrial flutter; I73.9 Peripheral vascular disease, unspecified; I10 Essential (primary) hypertension; E11.9 Type 2 diabetes mellitus without complications; I25.10 Atherosclerotic heart disease of native coronary artery without angina pectoris; Z87.19 Personal history of other diseases of the digestive system; D63.8 Anemia in other chronic diseases classified elsewhere; I11.0 Hypertensive heart disease with heart failure; I50.30 Unspecified diastolic (congestive) heart failure; E07.9 Disorder of thyroid, unspecified; Z79.01 Long term (current) use of anticoagulants; Z79.02 Long term (current) use of antithrombotics/antiplatelets; Z79.890 Hormone replacement therapy; Z79.4 Long term (current) use of insulin; Z95.5 Presence of coronary angioplasty implant and graft; Z79.899 Other long term (current) drug therapy; Z91.041 Radiographic dye allergy status; Z86.79 Personal history of other diseases of the circulatory system
CPT/HCPCS: 80048; 80053; 82962 ×2; 85025 ×2; 85347 ×2; 85610; 85730; 93005 ×2; 93655; 93656; 93657; C1732 ×4; C1759; C1760 ×2; C1884; C1893 ×2; C1894 ×2; J3010; 36415; 36416; 93010; J0282; J1644; J1815; J1885; J1940; J2405; J2704; J2720; J7070; S0028

== ENCOUNTER → 2023-08-19 | Day surgery (SDC) | payer OTHER ==
[2023-08-16 12:30] VITALS: BMI 26.5
[2023-08-16 13:44] LABS: INR-International Normal Ratio 1.1; PTT 29.5 sec (22.0-33.0); Prothrombin Time 12.2 sec (9.5-12.1)
[2023-08-16 13:45] LABS: ALT (SGPT) 9 U/L (8-55); AST (SGOT) 11 U/L (5-34); Albumin 4.2 g/dL (3.4-4.8); Alkaline Phosphatase 66 U/L (40-110); Anion Gap 17 mmol/L (10-20); BUN (Urea Nitrogen) 16 mg/dL (8.4-25.7); Bilirubin, Direct 0.2 mg/dL (0.1-0.3); Bilirubin, Total 0.4 mg/dL (0.2-1.2); Calc. Creatinine Clearance 81 mL/min (70-130); Calcium 9.1 mg/dL (7.8-10.44); Carbon Dioxide 22 mmol/L (23-31); Chloride 101 mmol/L (98-107); Estimated GFR 81; Glucose 149 mg/dL (83-110); Hematocrit 40.1 % (38.8-50.0); Hemoglobin 11.5 g/dL (13.5-17.5); Mean Corpuscular HGB CONC 28.7 g/dL (32.0-36.0); Mean Corpuscular Hemoglobin 18.7 pg (27.0-33.0); Mean Corpuscular Volume 65.1 fl (81.2-95.1); Mean Platelet Volume 9.6 fl (7.4-10.4); Platelet Count 411 10x3/uL (150-450); Potassium 3.7 mmol/L (3.5-5.1); Protein, Total 6.7 g/dL (5.8-8.1); RBC Distribution Width 22.5 % (11.5-14.5); Red Blood Cell (RBC) Count 6.16 10x6/uL (4.32-5.72); Sodium 136 mmol/L (136-145); White Blood Cell (WBC) Count 11.2 10x3/uL (3.5-10.5)
[2023-08-16 20:22] LABS: T4 8.08 ug/dL (4.87-11.72)
[~2023-08-19] MED LIST changes: -Iopamidol-370 76% 500 ML MDV (1 ML CHARGE) ONE; +Lidocaine 1% PF 5 ML VIAL ONE; +PROPOFOL 200 MG/20 ML VIAL ONE
== END ==
LOC: SDC 09:57
PROVIDERS: ATTEND Internal Medicine Cardiovascular Disease
PROC: 5A2204Z Restoration of Cardiac Rhythm, Single (ICD-10-PCS; principal; 2023-08-19)
DX: I48.92 Unspecified atrial flutter (principal); I48.19 Other persistent atrial fibrillation; I25.10 Atherosclerotic heart disease of native coronary artery without angina pectoris; I73.9 Peripheral vascular disease, unspecified; E11.9 Type 2 diabetes mellitus without complications; D64.9 Anemia, unspecified; I50.30 Unspecified diastolic (congestive) heart failure; I11.0 Hypertensive heart disease with heart failure; E07.9 Disorder of thyroid, unspecified; Z87.19 Personal history of other diseases of the digestive system; Z79.02 Long term (current) use of antithrombotics/antiplatelets; Z79.899 Other long term (current) drug therapy; Z91.041 Radiographic dye allergy status; Z92.29 Personal history of other drug therapy
CPT/HCPCS: 80048; 80076; 84436; 84443; 84480; 85027; 85610; 85730; 92960; 93005; 93010; J2704

== ENCOUNTER 2023-09-13 12:15 | Outpatient (CLI) | payer OTHER ==
[2023-09-13 13:58] LABS: #Basophils 0.1 10x3/uL (0.0-0.2); #Eosinphils 0.2 10x3/uL (0.0-0.5); #Monocytes 0.8 10x3/uL (0.0-1.1); #Neutrophils 5.9 10x3/uL (1.5-8.4); %Basophils 1.5 % (0.0-2.0); %Eosinophils 2.8 % (0.0-6.0); %Lymphocytes 17.8 % (18.0-47.0); %Neutrophils 68.7 % (40.0-75.0); Hematocrit 37.7 % (38.8-50.0); Hemoglobin 10.8 g/dL (13.5-17.5); Mean Corpuscular HGB CONC 28.6 g/dL (32.0-36.0); Mean Corpuscular Hemoglobin 18.9 pg (27.0-33.0); Mean Corpuscular Volume 65.9 fl (81.2-95.1); Mean Platelet Volume 9.6 fl (7.4-10.4); Platelet Count 365 10x3/uL (150-450); RBC Distribution Width 21.5 % (11.5-14.5); Red Blood Cell (RBC) Count 5.72 10x6/uL (4.32-5.72); White Blood Cell (WBC) Count 8.6 10x3/uL (3.5-10.5)
[2023-09-13 14:15] LABS: INR-International Normal Ratio 1.1; PTT 28.2 sec (22.0-33.0); Prothrombin Time 12.3 sec (9.5-12.1)
[2023-09-13 14:25] LABS: ALT (SGPT) 14 U/L (8-55); AST (SGOT) 14 U/L (5-34); Albumin 4.5 g/dL (3.4-4.8); Alkaline Phosphatase 63 U/L (40-110); Anion Gap 16 mmol/L (10-20); BUN (Urea Nitrogen) 19 mg/dL (8.4-25.7); Bilirubin, Direct 0.2 mg/dL (0.1-0.3); Bilirubin, Total 0.4 mg/dL (0.2-1.2); Calc. Creatinine Clearance 0 mL/min (70-130); Calcium 9.6 mg/dL (7.8-10.44); Carbon Dioxide 21 mmol/L (23-31); Chloride 103 mmol/L (98-107); Estimated GFR 70; Globulin 2.7 g/dL (2.4-3.5); Glucose 249 mg/dL (83-110); Protein, Total 7.2 g/dL (5.8-8.1); Sodium 136 mmol/L (136-145)
== END 2023-09-13 12:16 | disposition home or self-care (01) ==
LOC: LABBT 12:15
PROVIDERS: ATTEND Internal Medicine Cardiovascular Disease
DX: Z01.818 Encounter for other preprocedural examination (principal)
CPT/HCPCS: 80053; 80076; 85025; 85610; 85730; 93005; 93010

== ENCOUNTER 2023-09-16 06:08 | Day surgery (SDC) | payer OTHER ==
[2023-09-13 13:28] VITALS: BMI 26.5
[2023-09-16 07:08] LABS: Cardiac Risk 2.3 (Less than 4.5)
[2023-09-16] MEDS ORDERED: Verapamil 5 MG/2 ML VIAL ONE (08:21)
[2023-09-16] MEDS ORDERED: Heparin 10,000 UNITS/ 10 ML VIAL ONE (08:21)
[2023-09-16] MEDS ORDERED: Hydrocortisone Sod Succ/PF 100 mg/2 ml Vial ONE (08:21)
[2023-09-16] MEDS ORDERED: Lidocaine 1% (PF) 30 ML VIAL ONE (08:22)
[2023-09-16] MEDS ORDERED: Nitroglycerin 50 MG/250 ML BOT 250 ML ONE (08:22)
[2023-09-16] MEDS ORDERED: Midazolam HCl 2 mg/2 ml Vial ONE (08:23)
[2023-09-16] MEDS ORDERED: fentaNYL 50 mcg/mL 1 mL Vial ONE (08:23)
[2023-09-16] MEDS ORDERED: diphenhydrAMINE 50 MG/ML VIAL ONE (09:07)
[2023-09-16] MEDS ORDERED: Iopamidol 370 76% 100 ML VIAL ONE (09:29)
== END 2023-09-16 13:54 | disposition home or self-care (01) ==
LOC: SDC 06:08
PROVIDERS: ATTEND Internal Medicine Cardiovascular Disease
PROC: B200YZZ Plain Radiography of Single Coronary Artery using Other Contrast (ICD-10-PCS; principal; 2023-09-16)
PROC: 4A023N7 Measurement of Cardiac Sampling and Pressure, Left Heart, Percutaneous Approach (ICD-10-PCS; 2023-09-16)
DX: I25.10 Atherosclerotic heart disease of native coronary artery without angina pectoris (principal); I10 Essential (primary) hypertension; E03.9 Hypothyroidism, unspecified; E11.9 Type 2 diabetes mellitus without complications; E78.5 Hyperlipidemia, unspecified; I48.0 Paroxysmal atrial fibrillation; I35.1 Nonrheumatic aortic (valve) insufficiency; I73.9 Peripheral vascular disease, unspecified; N52.9 Male erectile dysfunction, unspecified; Z79.890 Hormone replacement therapy; Z87.891 Personal history of nicotine dependence; Z91.041 Radiographic dye allergy status; Z79.899 Other long term (current) drug therapy; Z79.4 Long term (current) use of insulin
CPT/HCPCS: 80061; 93458; C1769 ×2; C1894; J3010; 36415; 99152; J1200; J1644; J1720; J2001; J2250; Q9967

== ENCOUNTER 2024-07-13 14:57 | Observation (INO) | payer OTHER ==
[2024-07-13] MEDS ORDERED: Iopamidol 370 76% 100 ML VIAL ONE (15:30)
[2024-07-13 17:13] LABS: #Basophils 0.15 10x3/uL (0.0-0.2); %Basophils 1.1 % (0.0-1.0); %Eosinophils 2.7 % (0.0-10.0); %Lymphocytes 11.3 % (21.0-51.0); %Monocytes 7.6 % (0.0-10.0); %Neutrophils 76.8 % (42.0-75.0); Hematocrit 44.6 % (42.0-52.0); Hemoglobin 12.8 g/dL (14.0-18.0); Mean Corpuscular HGB CONC 28.7 g/dL (32.0-36.0); Mean Corpuscular Hemoglobin 19.8 pg (27.0-31.0); Mean Corpuscular Volume 68.9 fL (78.0-98.0); Mean Platelet Volume 9.4 fL (7.4-10.4); Platelet Count 391 10x3/uL (130-400); RBC Distribution Width 23.4 % (11.5-14.5); Red Blood Cell (RBC) Count 6.47 mill/uL (4.70-6.10)
[2024-07-13 17:23] LABS: ALT (SGPT) 11 U/L (8-55); AST (SGOT) 18 U/L (5-34); Albumin 4.2 g/dL (3.4-4.8); Alkaline Phosphatase 80 U/L (40-110); Anion Gap 15 mmol/L (10-20); BUN (Urea Nitrogen) 19 mg/dL (8.4-25.7); Bilirubin, Total 0.4 mg/dL (0.2-1.2); Calc. Creatinine Clearance 0 mL/min (70-130); Calcium 9.9 mg/dL (7.8-10.44); Carbon Dioxide 23 mmol/L (23-31); Chloride 105 mmol/L (98-107); Estimated GFR 73; Globulin 3.2 g/dL (2.4-3.5); Glucose 111 mg/dL (83-110); Potassium 3.9 mmol/L (3.5-5.1); Protein, Total 7.4 g/dL (5.8-8.1); Sodium 139 mmol/L (136-145)
[2024-07-13 17:23] LABS: Acetaminophen Less than 10 mcg/mL (Less than 10); Alcohol Less than 10.0 mg/dL (Less than 10); Salicylate Less than 8.0 mg/dL (Less than 8.0)
[2024-07-13 17:47] LABS: Anisocytosis MODERATE=16-30 cells HPF (0-5); Burr Cells SLIGHT = 2-5 cells HPF (0-1); Elliptocytes SLIGHT = 2-5 cells HPF (0-1); Hypochromia SLIGHT = 6-15 cells HPF (0-5); Microcytosis SLIGHT = 6-15 cells HPF (0-5); Platelet Adequacy Comment Platelets Normal; Polychromasia SLIGHT = 2-3 cells HPF (0-2); Schistocytes SLIGHT = 2-5 cells HPF (0-1); Target Cells SLIGHT = 2-5 cells HPF (0-1)
[2024-07-13 21:20] LABS: Troponin I 0.079 ng/mL (< 0.028)
[2024-07-13] MEDS ORDERED: Ondansetron PF 4 MG/2 ML Vial ONE (22:05)
[2024-07-13] MEDS ORDERED: diphenhydrAMINE 50 MG/ML VIAL ONE (22:27)
[2024-07-13] MEDS ORDERED: methylPREDNISolone Sod Succ 40 MG VIAL ONE (22:27)
[2024-07-13] MEDS ORDERED: Famotidine/PF 20 mg/2ml Vial ONE (22:27)
[2024-07-13] MEDS ORDERED: Aspirin Chewable 81 MG TAB ONE (22:28)
[2024-07-13] MEDS ORDERED: Nitroglycerin 2% Ointment 1 INCH/1 GM Packet ONE (22:42)
[2024-07-14 00:14] LABS: Bilirubin Negative (Negative); Blood, Urine Negative (Negative); CAUTI Indications for Culture Fever or rigors; Clarity Clear (Clear); Glucose, Urine (Dipstick) Greater than 1000 mg/dL (Negative); Ketone, Urine Negative (Negative); Leukocyte 75 Leu/uL (Negative); Nitrite Negative (Negative); Protein, Urine (Dipstick) 20 mg/dL (Neg-Trace); RBC/HPF 0-3 HPF (0-3); Specific Gravity, Urine 1.034 (1.002-1.036); Squamous Epithelial 0-3 HPF (0-3); Urobilinogen Normal mg/dL (Less than 2); pH, Urine 5.5 (5.0-9.0)
[2024-07-14 00:15] LABS: Bacteria/HPF 1+ HPF (None Seen)
[2024-07-14 00:16] LABS: Urine Culture Reflex Yes Yes
[2024-07-14 00:19] LABS: Amphetamine Not Detected (NotDetected); Barbiturates Screen Not Detected (NotDetected); Benzodiazepine Screen Not Detected (NotDetected); Cocaine Metabolite Screen Not Detected (NotDetected); Methadone Not Detected (NotDetected); Methamphetamine Not Detected (NotDetected); Opiate Screen Not Detected (NotDetected); Oxycodone Screen Not Detected (NotDetected); Phencyclidine (PCP) Not Detected (NotDetected); THC/Cannabinoid Screen Not Detected (NotDetected); Tricyclic Screen Not Detected (NotDetected)
[2024-07-14] MEDS ORDERED: Ondansetron PF 4 MG/2 ML Vial IVP PRN (00:32)
[2024-07-14] MEDS ORDERED: Ondansetron ODT 4 MG TAB PO PRN (00:32)
[2024-07-14] MEDS ORDERED: Metoprolol Tartrate 5 MG (5 mL) VIAL ONE (00:40)
[2024-07-14] MEDS ORDERED: Benzocaine/Menthol 1 LOZ LOZ PO PRN (00:58)
[2024-07-14] MEDS ORDERED: Dextrose 5% in Water 1,000 ML IV PRN ×2 (01:27→10:43)
[2024-07-14] MEDS ORDERED: Insulin Lispro 100 UNIT/ML 10 ML VIAL SC PRN (01:27)
[2024-07-14] MEDS ORDERED: Dextrose 50% Abboject 50 ML SYRINGE SLOW IVP PRN ×2 (01:27→10:43)
[2024-07-14] MEDS ORDERED: Glucagon 1 MG/ML KIT IM PRN ×2 (01:27→10:43)
[2024-07-14] MEDS ORDERED: Baclofen 10 MG TAB PO PRN (01:35)
[2024-07-14 01:45] VITALS: BMI 26.5
[2024-07-14 02:01] LABS: Troponin I 0.237 ng/mL (< 0.028)
[2024-07-14] MEDS: Lactated Ringer's 1,000 ML IV SCH (02:11)
[2024-07-14] MEDS ORDERED: Aspirin 81 mg Enteric Coated Tablet PO SCH (02:45)
[2024-07-14] MEDS ORDERED: Heparin 5,000 UNITS/ML VIAL ONE (03:15)
[2024-07-14] MEDS: Heparin 5,000 UNITS/ML VIAL SC SCH (03:17)
[2024-07-14 05:48] VITALS: TEMP 98.7
[2024-07-14 05:51] LABS: #Basophils 0.06 10x3/uL (0.0-0.2); #Eosinphils Less than 0.03 10x3/uL (0.0-0.7); %Basophils 0.6 % (0.0-1.0); %Lymphocytes 8.1 % (21.0-51.0); Hematocrit 41.2 % (42.0-52.0); Hemoglobin 11.8 g/dL (14.0-18.0); Mean Corpuscular HGB CONC 28.6 g/dL (32.0-36.0); Mean Corpuscular Hemoglobin 19.8 pg (27.0-31.0); Mean Corpuscular Volume 69.2 fL (78.0-98.0); Mean Platelet Volume 9.9 fL (7.4-10.4); Platelet Count 373 10x3/uL (130-400); RBC Distribution Width 22.6 % (11.5-14.5); Red Blood Cell (RBC) Count 5.95 mill/uL (4.70-6.10)
[2024-07-14 06:04] LABS: ALT (SGPT) 13 U/L (8-55); AST (SGOT) 31 U/L (5-34); Albumin 3.8 g/dL (3.4-4.8); Alkaline Phosphatase 69 U/L (40-110); Anion Gap 16 mmol/L (10-20); BUN (Urea Nitrogen) 23 mg/dL (8.4-25.7); Bilirubin, Total 0.4 mg/dL (0.2-1.2); Calc. Creatinine Clearance 68 mL/min (70-130); Carbon Dioxide 18 mmol/L (23-31); Chloride 107 mmol/L (98-107); Estimated GFR 66; Globulin 2.9 g/dL (2.4-3.5); Glucose 164 mg/dL (83-110); Potassium 4.3 mmol/L (3.5-5.1); Protein, Total 6.7 g/dL (5.8-8.1); Sodium 137 mmol/L (136-145)
[2024-07-14] MEDS ORDERED: Levothyroxine Sodium 112 MCG TAB ONE (06:04)
[2024-07-14] MEDS: Levothyroxine Sodium 25 MCG TAB PO SCH (06:07)
[2024-07-14] MEDS: Levothyroxine Sodium 112 MCG TAB PO SCH (06:07)
[2024-07-14] MEDS: Insulin Lispro 100 UNIT/ML 10 ML VIAL SC PRN (07:03)
[2024-07-14] MEDS ORDERED: Insulin Lispro 100 UNIT/ML 10 ML VIAL ONE (07:03)
[2024-07-14] MEDS ORDERED: Losartan 25 MG TAB ONE (08:35)
[2024-07-14] MEDS ORDERED: Clopidogrel Bisulfate 75 MG TAB ONE (08:35)
[2024-07-14] MEDS ORDERED: Carvedilol 6.25 MG TAB ONE (08:35)
[2024-07-14] MEDS ORDERED: Meclizine HCl 25 MG TAB ONE (08:35)
[2024-07-14] MEDS ORDERED: Enoxaparin 40 MG (0.4 mL) SYRINGE ONE (08:36)
[2024-07-14] MEDS: Chlorthalidone 25 MG TAB PO SCH (08:50)
[2024-07-14] MEDS: Carvedilol 3.125 MG TAB PO SCH (08:50)
[2024-07-14] MEDS: Clopidogrel Bisulfate 75 MG TAB PO SCH (08:50)
[2024-07-14] MEDS: Empagliflozin 25 MG TAB PO SCH (08:50)
[2024-07-14 08:51] LABS: Critical Call Chem Troponin I RESULT DECREASING; Troponin I 2.033 ng/mL (< 0.028)
[2024-07-14] MEDS: Meclizine HCl 25 MG TAB PO SCH (08:51)
[2024-07-14] MEDS: Ranolazine ER 500 MG TAB PO SCH (08:51)
[2024-07-14] MEDS: Losartan 25 MG TAB PO SCH (08:52)
[2024-07-14] MEDS: Enoxaparin 40 MG (0.4 mL) SYRINGE SC SCH (08:52)
[2024-07-14] MEDS ORDERED: Levothyroxine Sodium 125 MCG TAB PO SCH (09:00)
[2024-07-14] MEDS: Insulin Glargine 30 UNITS/0.3 ML VIAL SC SCH (09:04)
[2024-07-14] MEDS: Docusate 100 MG CAP PO SCH (10:34)
[2024-07-14] MEDS: metFORMIN 500 MG TAB PO SCH (10:34)
[2024-07-14] MEDS ORDERED: PROPOFOL 200 MG/20 ML VIAL ONE (13:23)
[2024-07-14] MEDS ORDERED: Dronedarone HCl 400 MG TAB PO SCH ×2 (13:30→17:00)
[2024-07-14] MEDS ORDERED: Rosuvastatin 20 MG TAB PO SCH (21:00)
[2024-07-14] MEDS ORDERED: Insulin Glargine 30 UNITS/0.3 ML VIAL SC SCH (21:00)
[2024-07-14] MEDS ORDERED: Pantoprazole DR 40 MG TAB PO SCH (21:00)
[2024-07-15] MEDS ORDERED: Ferrous Sulfate 325 MG TAB PO SCH (09:00)
[2024-07-17] MEDS ORDERED: FLU (Fluad Triv) TS24-25 (65UP)/MF59C/PF 45 MCG/0.5 ML Syringe IM ONE (02:00)
== END 2024-07-14 16:40 | disposition home or self-care (01) ==
LOC: ERS 14:57 → ERHOLD 07-14 00:28
PROVIDERS: ADMIT Family Medicine; ATTEND Family Medicine
DX: I47.19 Other supraventricular tachycardia (principal); I10 Essential (primary) hypertension; E11.51 Type 2 diabetes mellitus with diabetic peripheral angiopathy without gangrene; I48.0 Paroxysmal atrial fibrillation; I35.1 Nonrheumatic aortic (valve) insufficiency; N52.9 Male erectile dysfunction, unspecified; I25.10 Atherosclerotic heart disease of native coronary artery without angina pectoris; I35.0 Nonrheumatic aortic (valve) stenosis; K92.2 Gastrointestinal hemorrhage, unspecified; E03.9 Hypothyroidism, unspecified; Z95.1 Presence of aortocoronary bypass graft; Z87.891 Personal history of nicotine dependence; Z79.4 Long term (current) use of insulin; Z79.890 Hormone replacement therapy; Z79.899 Other long term (current) drug therapy; Z91.041 Radiographic dye allergy status; Z91.013 Allergy to seafood
CPT/HCPCS: 71045; 71275; 80053; 80306; 80307; 81001; 82962; 83880; 84484 ×4; 85025; 87086; 92960; 93005 ×2; 96374; 96375; 99285; J1200; J1644; J1650; J1815; J2405; J2704; J2919; J3490; J7120; Q9967; 36415; 36416; 84443; 93010

== ENCOUNTER 2024-07-23 09:16 | Day surgery (SDC) | payer OTHER ==
[2024-07-23] MEDS ORDERED: Lidocaine 1% (PF) 30 ML VIAL ONE (11:33)
[2024-07-23] MEDS ORDERED: PROPOFOL 20 ML ONE (11:33)
[2024-07-23 12:42] LABS: INR-International Normal Ratio 1.2; PTT 28.9 sec (22.9-36.1); Prothrombin Time 14.9 sec (12.0-14.7)
== END 2024-07-23 14:09 | disposition home or self-care (01) ==
LOC: SDC 09:16
PROVIDERS: ATTEND Internal Medicine Cardiovascular Disease
PROC: 5A2204Z Restoration of Cardiac Rhythm, Single (ICD-10-PCS; principal; 2024-07-23)
DX: I48.0 Paroxysmal atrial fibrillation (principal); I48.92 Unspecified atrial flutter; E07.9 Disorder of thyroid, unspecified; I10 Essential (primary) hypertension; E11.9 Type 2 diabetes mellitus without complications; D64.9 Anemia, unspecified; E78.5 Hyperlipidemia, unspecified; I35.0 Nonrheumatic aortic (valve) stenosis; I73.9 Peripheral vascular disease, unspecified; I25.10 Atherosclerotic heart disease of native coronary artery without angina pectoris; I35.1 Nonrheumatic aortic (valve) insufficiency; N52.9 Male erectile dysfunction, unspecified; K92.2 Gastrointestinal hemorrhage, unspecified; Z87.891 Personal history of nicotine dependence; Z79.82 Long term (current) use of aspirin; Z79.899 Other long term (current) drug therapy; Z79.890 Hormone replacement therapy; Z79.84 Long term (current) use of oral hypoglycemic drugs; Z79.4 Long term (current) use of insulin; Z79.02 Long term (current) use of antithrombotics/antiplatelets; Z91.041 Radiographic dye allergy status
CPT/HCPCS: 82962; 85610; 85730; 92960; 93005; J2704; 36415; 36416; 93010

== ENCOUNTER 2024-07-29 14:57 | Outpatient (CLI) | payer OTHER ==
[2024-07-29 16:25] LABS: #Basophils 0.12 10x3/uL (0.0-0.2); %Basophils 1.2 % (0.0-1.0); %Eosinophils 3.1 % (0.0-10.0); %Monocytes 8.6 % (0.0-10.0); %Neutrophils 70.8 % (42.0-75.0); Hematocrit 44.1 % (42.0-52.0); Mean Corpuscular HGB CONC 29.5 g/dL (32.0-36.0); Mean Corpuscular Hemoglobin 19.7 pg (27.0-31.0); Mean Corpuscular Volume 66.7 fL (78.0-98.0); Platelet Count 386 10x3/uL (130-400); RBC Distribution Width 22.3 % (11.5-14.5); Red Blood Cell (RBC) Count 6.61 mill/uL (4.70-6.10)
[2024-07-29 16:38] LABS: ALT (SGPT) 12 U/L (8-55); AST (SGOT) 15 U/L (5-34); Albumin 3.9 g/dL (3.4-4.8); Alkaline Phosphatase 72 U/L (40-110); Anion Gap 19 mmol/L (10-20); BUN (Urea Nitrogen) 20 mg/dL (8.4-25.7); Bilirubin, Total 0.4 mg/dL (0.2-1.2); Calc. Creatinine Clearance 0 mL/min (70-130); Calcium 9.4 mg/dL (7.8-10.44); Carbon Dioxide 21 mmol/L (23-31); Chloride 103 mmol/L (98-107); Estimated GFR 79; Globulin 3.1 g/dL (2.4-3.5); Glucose 110 mg/dL (83-110); Potassium 3.5 mmol/L (3.5-5.1); Sodium 139 mmol/L (136-145)
[2024-07-29 16:43] LABS: INR-International Normal Ratio 1.1; PTT 31.6 sec (22.9-36.1); Prothrombin Time 14.4 sec (12.0-14.7)
[2024-07-31 08:17] LABS: Myoglobin, Serum 27 ng/mL (28-72)
== END 2024-07-29 14:58 | disposition home or self-care (01) ==
LOC: LABBT 14:57
PROVIDERS: ATTEND Internal Medicine Cardiovascular Disease
DX: Z01.818 Encounter for other preprocedural examination (principal); I48.0 Paroxysmal atrial fibrillation
CPT/HCPCS: 80053; 83010; 83051; 83874; 85025; 85610; 85730; 86850; 86900; 86901; 93005; 93010

== ENCOUNTER 2024-10-28 06:01 | Day surgery (SDC) | payer OTHER ==
[2024-10-27 10:48] VITALS: BMI 27.0
[2024-10-28 07:03] LABS: #Basophils 0.12 10x3/uL (0.0-0.2); %Basophils 0.8 % (0.0-1.0); %Eosinophils 6.9 % (0.0-10.0); %Lymphocytes 9.1 % (21.0-51.0); %Monocytes 7.6 % (0.0-10.0); %Neutrophils 74.9 % (42.0-75.0); Hemoglobin 11.9 g/dL (14.0-18.0); Mean Corpuscular HGB CONC 29.8 g/dL (32.0-36.0); Mean Corpuscular Hemoglobin 20.6 pg (27.0-31.0); Mean Corpuscular Volume 69.2 fL (78.0-98.0); Mean Platelet Volume 9.5 fL (7.4-10.4); Platelet Count 321 10x3/uL (130-400); RBC Distribution Width 23.4 % (11.5-14.5); Red Blood Cell (RBC) Count 5.78 mill/uL (4.70-6.10)
[2024-10-28 07:13] LABS: INR-International Normal Ratio 1.2; PTT 32.5 sec (22.9-36.1); Prothrombin Time 15.3 sec (12.0-14.7)
[2024-10-28 07:18] LABS: Anion Gap 14 mmol/L (10-20); BUN (Urea Nitrogen) 15 mg/dL (8.4-25.7); Calc. Creatinine Clearance 92 mL/min (70-130); Calcium 9.4 mg/dL (7.8-10.44); Carbon Dioxide 25 mmol/L (23-31); Chloride 104 mmol/L (98-107); Estimated GFR 91; Glucose 135 mg/dL (83-110); Potassium 4.1 mmol/L (3.5-5.1); Sodium 139 mmol/L (136-145)
[2024-10-28 07:32] LABS: Anisocytosis SLIGHT = 6-15 cells HPF (0-5); Burr Cells SLIGHT = 2-5 cells HPF (0-1); Elliptocytes SLIGHT = 2-5 cells HPF (0-1); Hypochromia SLIGHT = 6-15 cells HPF (0-5); Microcytosis SLIGHT = 6-15 cells HPF (0-5); Platelet Adequacy Comment Platelets Normal; Polychromasia SLIGHT = 2-3 cells HPF (0-2); Schistocytes SLIGHT = 2-5 cells HPF (0-1)
[2024-10-28] MEDS ORDERED: Lidocaine 1% PF 5 ML VIAL ONE (09:10)
[2024-10-28] MEDS ORDERED: PROPOFOL 200 MG/20 ML VIAL ONE (09:10)
[2024-10-28 10:51] LABS: Eosinophils 6 % (0-10); Lymphocytes 7 % (21-51); Monocytes 5 % (0-10); Neutrophil 79 % (42-75); Reactive Lymphocytes 2 % (0-10)
== END 2024-10-28 11:08 | disposition home or self-care (01) ==
LOC: SDC 06:01
PROVIDERS: ATTEND Internal Medicine Cardiovascular Disease
PROC: 5A2204Z Restoration of Cardiac Rhythm, Single (ICD-10-PCS; principal; 2024-10-28)
DX: I48.0 Paroxysmal atrial fibrillation (principal); I48.4 Atypical atrial flutter; I25.10 Atherosclerotic heart disease of native coronary artery without angina pectoris; I73.9 Peripheral vascular disease, unspecified; D64.9 Anemia, unspecified; E11.9 Type 2 diabetes mellitus without complications; I11.0 Hypertensive heart disease with heart failure; I50.30 Unspecified diastolic (congestive) heart failure; E78.5 Hyperlipidemia, unspecified; K92.2 Gastrointestinal hemorrhage, unspecified; I35.0 Nonrheumatic aortic (valve) stenosis; I35.1 Nonrheumatic aortic (valve) insufficiency; E07.9 Disorder of thyroid, unspecified; Z98.890 Other specified postprocedural states; Z79.01 Long term (current) use of anticoagulants; Z79.82 Long term (current) use of aspirin; Z79.899 Other long term (current) drug therapy; Z79.02 Long term (current) use of antithrombotics/antiplatelets; Z79.890 Hormone replacement therapy; Z91.041 Radiographic dye allergy status
CPT/HCPCS: 80048; 82962; 85025; 85610; 85730; 92960; J2704; 36415; 36416